=== PATIENT | female | born 1945 | race Hispanic/Latino ===

== ENCOUNTER → 2018-09-21 | Outpatient (CLI) | payer OTHER ==
[~2018-09-21] MED LIST: AMLO5TAB9 PO; BACL10TA PO; BRIM5DRO OP; ESOM40CA54 PO; FENO145T37 PO; GLIP1TAB6 PO; HYDR-4060 PO; LEVO500S PO; LISI2.5T2 PO; NAPR-1023 PO; NORT25CA3 PO; ONDA4TAB10 PO; PRAM1TAB3 PO; PRAV40TA3 PO; SITA100T12 PO; TAMS-1 PO; XALA2.5OS OD
== END | disposition home or self-care (01) ==
LOC: RAH 13:20
PROVIDERS: ATTEND Family Medicine
DX: Z12.31 Encounter for screening mammogram for malignant neoplasm of breast (principal)
CPT/HCPCS: 77067

== ENCOUNTER → 2020-06-28 | Outpatient (CLI) | payer OTHER ==
[~2020-06-28] MED LIST changes: +AMLO-257 PO; -AMLO5TAB9 PO; +FENO145T26 PO; -FENO145T37 PO
== END | disposition home or self-care (01) ==
LOC: SHCH 12:50
PROVIDERS: ATTEND Internal Medicine Cardiovascular Disease
DX: R07.9 Chest pain, unspecified (principal)
CPT/HCPCS: 93306

== ENCOUNTER → 2020-07-02 | Outpatient (CLI) | payer OTHER ==
[~2020-07-02] MED LIST changes: +REGADENOSON 0.4 MG/5 ML PF SYG IVP SCH
== END | disposition home or self-care (01) ==
LOC: SHCH 08:26
PROVIDERS: ATTEND Internal Medicine Cardiovascular Disease
DX: R07.9 Chest pain, unspecified (principal)
CPT/HCPCS: 78452; 93017; 96374; A9500 ×2; J2785

== ENCOUNTER → 2021-04-01 | Outpatient (CLI) | payer OTHER ==
[~2021-04-01] MED LIST changes: +LISI2.5T13 PO; -LISI2.5T2 PO; -REGADENOSON 0.4 MG/5 ML PF SYG IVP SCH
== END | disposition home or self-care (01) ==
LOC: SHCH 10:08
PROVIDERS: ATTEND Internal Medicine Cardiovascular Disease
DX: R60.9 Edema, unspecified (principal)
CPT/HCPCS: 93970

== ENCOUNTER → 2022-02-11 | Outpatient (CLI) | payer OTHER, MEDICARE ==
[2022-02-11 12:42] LABS: ALBUMIN 3.7 g/dL (3.5-5.0); BILIRUBIN,TOTAL 0.3 mg/dL (0.2-1.0); CREATININE 0.8 mg/dL (0.5-1.5); POTASSIUM 4.5 mmol/L (3.5-5.1); TOTAL PROTEIN, SERUM 8.2 g/dL (6.0-8.3)
== END | disposition home or self-care (01) ==
LOC: LAB 09:31
PROVIDERS: ATTEND Internal Medicine Cardiovascular Disease
DX: M94.0 Chondrocostal junction syndrome [Tietze] (principal); I10 Essential (primary) hypertension
CPT/HCPCS: 36415; 80053; 80061

== ENCOUNTER → 2023-02-08 | Outpatient (CLI) | payer OTHER, MEDICARE ==
[2023-02-08 12:32] LABS: ALBUMIN 3.5 g/dL (3.5-5.0); CREATININE 0.6 mg/dL (0.5-1.5); POTASSIUM 4.5 mmol/L (3.5-5.1); TOTAL PROTEIN, SERUM 7.3 g/dL (6.0-8.3)
== END | disposition home or self-care (01) ==
LOC: LAB 09:00
PROVIDERS: ATTEND Internal Medicine Cardiovascular Disease
DX: I25.10 Atherosclerotic heart disease of native coronary artery without angina pectoris (principal); E78.5 Hyperlipidemia, unspecified; E11.59 Type 2 diabetes mellitus with other circulatory complications
CPT/HCPCS: 36415; 80053; 80061

== ENCOUNTER 2023-02-16 15:25 | Emergency (ER) | payer OTHER, MEDICARE ==
[~2023-02-16] VITALS: Ht 157.5 cm; Wt 72.6 kg
[2023-02-16 20:49] VITALS: BP 145/69
[2023-02-16] MEDS ORDERED: KETOROLAC 15MG/ML VIAL (15MG/ML) IM ONE (21:00)
[2023-02-16] MEDS ORDERED: DICL100G31 TP (21:01)
== END 2023-02-16 21:26 | disposition home or self-care (01) ==
LOC: EDH 15:25
DX: S00.83XA Contusion of other part of head, initial encounter (principal); E11.9 Type 2 diabetes mellitus without complications; E78.00 Pure hypercholesterolemia, unspecified; I10 Essential (primary) hypertension; Z79.84 Long term (current) use of oral hypoglycemic drugs; Z79.899 Other long term (current) drug therapy; Z88.0 Allergy status to penicillin; Z95.5 Presence of coronary angioplasty implant and graft; W18.2XXA Fall in (into) shower or empty bathtub, initial encounter; Y93.89 Activity, other specified; Y92.89 Other specified places as the place of occurrence of the external cause; Y99.8 Other external cause status
CPT/HCPCS: 99285; 70450; 73030; 72125; 70486; 96372; J1885

== ENCOUNTER 2024-04-02 04:10 | Inpatient (IN) | payer OTHER, MEDICARE ==
[~2024-04-02] VITALS: Ht 157.5 cm; Wt 71.9 kg
[2024-04-02] VITALS (14 sets, daily range): BP systolic 96–129; BP diastolic 41–61; PULSE 55–81; RESP 16–28; O2SAT 95–100
[~2024-04-02 04:10] MED LIST changes: +AEC81 PO; +ALBU90AE3 IH; +ALEN35TA53 PO; -AMLO-257 PO; +APIX5TAB PO; -BACL10TA PO; +CALC-1038 PO; +CLOP-31 PO; +EMPA25TA PO; -ESOM40CA54 PO; +EZET10TA48 PO; -FENO145T26 PO; +FLUT1BLS12 IH; +FURO40TA5 PO; +GLIM2TAB30 PO; -GLIP1TAB6 PO; -HYDR-4060 PO; -LEVO500S PO; +LISI10TA24 PO; -LISI2.5T13 PO; +METO25TA3 PO; -NAPR-1023 PO; -NORT25CA3 PO; +OMEP40CA21 PO; -ONDA4TAB10 PO; -PRAM1TAB3 PO; -PRAV40TA3 PO; +ROPI5TAB24 PO; +ROSU20TA73 PO; +SEMA14TA2 PO; -SITA100T12 PO; +SUCR1TAB2 PO; -TAMS-1 PO
[2024-04-02] MEDS: LACTATED RINGERS 1000ML 1,000 ML IV ONE (04:47)
[2024-04-02] MEDS: METOPROLOL TARTRATE 1 MG/ML 5ML VIAL IV ONE (04:49)
[2024-04-02 05:18] LABS: BASOPHILS # (AUTO) 0.03 K/uL (0.00-0.20); BASOPHILS % (AUTO) 0.4 % (0.0-5.0); EOSINOPHILS # (AUTO) 0.03 K/uL (0.00-0.70); EOSINOPHILS % (AUTO) 0.4 % (0.0-8.0); HEMATOCRIT 41.6 % (36-48); IMMATURE GRANULOCYTE ABSOLUTE 0.04 K/uL (0-1); LYMPHOCYTES # (AUTO) 0.8 K/uL (1.0-4.8); LYMPHOCYTES % (AUTO) 11.1 % (21.0-51.0); MEAN CORPUSCULAR HEMOGLOBIN 30.7 pg (27.0-33.0); MEAN CORPUSCULAR HGB CONC 34.1 g/dL (32.0-36.0); MONOCYTES # (AUTO) 0.6 K/uL (0.1-1.0); MONOCYTES % (AUTO) 8.4 % (3.0-13.0); NEUTROPHILS # (AUTO) 5.5 K/uL (1.8-7.7); NEUTROPHILS % (AUTO) 79.1 % (40.0-77.0); PLATELET COUNT (AUTO) 208 K/uL (130-400); RED BLOOD CELL COUNT(AUTO) 4.62 MIL/uL (4.00-5.50); RED CELL DISTRIBUTION WIDTH 12.7 % (11.0-15.5); WHITE BLOOD COUNT (AUTO) 6.9 K/uL (4.8-10.8)
[2024-04-02] MEDS: dilTIAZem 25MG INJ IVP SCH (05:24)
[2024-04-02 05:44] LABS: B-TYPE NATRIURETIC PEPTIDE 25 pg/mL (0-100)
[2024-04-02 05:53] LABS: ALBUMIN 2.6 g/dL (3.5-5.0); BILIRUBIN,TOTAL 0.4 mg/dL (0.2-1.0); CREATININE 0.8 mg/dL (0.5-1.0); TOTAL PROTEIN, SERUM 6.6 g/dL (6.0-8.3)
[2024-04-02] MEDS ORDERED: dilTIAZem 125 MG/25 ML INJ 125 MG in 0.9%NACL 100ML 100 ML IV SCH (06:00)
[2024-04-02] MEDS ORDERED: LACTULOSE 20 GM/30 ML UDCUP PO PRN (07:00)
[2024-04-02] MEDS ORDERED: acetaMINOPHEN 650 MG SUPPOSITORY RC PRN (07:00)
[2024-04-02] MEDS ORDERED: ALBUTEROL 0.083% 2.5 MG/3 ML INH IH PRN (07:00)
[2024-04-02] MEDS ORDERED: TEMAZEPAM 15 MG CAPSULE PO PRN (07:00)
[2024-04-02] MEDS ORDERED: hydrALAZine 20MG/ML VIAL IV PRN (07:00)
[2024-04-02] MEDS: ASPIRIN 81MG CHEW TAB PO ONE (07:25)
[2024-04-02] MEDS: INSULIN humuLIN R 100 UNIT/ML 3ML SQ SCH (07:26)
[2024-04-02] MEDS: 0.9%NACL 1000ML 1,000 ML IV SCH (07:29)
[2024-04-02 07:33] LABS: ABG BASE EXCESS -7.1 mmol/L (-2.0-3.0); ABG HCO3 16.2 mmol/L (21.0-28.0); ABG OXYGEN SATURATION 94.1 % (94.0-98.0); ABG PCO2 28 mmHg (32-45); ABG PH 7.383 (7.350-7.450); PO2, ARTERIAL BG 69.8 mmHg (83.0-108.0); VENT MODE, BG RA (ROOM AIR)
[2024-04-02] MEDS: ONDANSETRON 4MG INJ IVP PRN (08:57)
[2024-04-02] MEDS: ENOXAPARIN SODIUM 40 MG/0.4 ML SYRINGE SQ SCH (09:56)
[2024-04-02] MEDS: metOPROLol sucCINATE 25 MG TAB.SR.24H PO SCH (09:56)
[2024-04-02] MEDS: FAMOTIDINE 20MG TAB PO SCH (09:56)
[2024-04-02] MEDS: ASPIRIN 81MG CHEW TAB PO SCH (09:56)
[2024-04-02] MEDS: IpraTROPium 0.5 MG/2.5 ML INH IH SCH (10:31)
[2024-04-02 13:56] LABS: APPEARANCE,URINE CLEAR (CLEAR); BILIRUBIN,URINE NEGATIVE (NEGATIVE); COLOR,URINE LIGHT-YELLOW (YELLOW); GLUCOSE, URINE (UA) >=1000 mg/dL (NEGATIVE); KETONES,URINE NEGATIVE (NEGATIVE); LEUKOCYTE ESTERASE ,URINE 75 Leu/uL (NEGATIVE); NITRATE,URINE NEGATIVE (NEGATIVE); OCCULT BLOOD,URINE NEGATIVE (NEGATIVE); OTHER CASTS, URINE 1 /LPF (None Seen); PH,URINE 5.5 (5.0-8.0); PROTEIN,URINE NEGATIVE (NEGATIVE); SQUAMOUS EPITHELIAL CELL,UR FEW /HPF (0-2); UROBILINOGEN,URINE 0.2 mg/dL (0.2-1.0)
[2024-04-02] MEDS: [UNRECOGNIZED DRUG - OTHER] IVPB SCH (14:31)
[2024-04-02] MEDS: METRONIDAZOLE 500MG/100ML BAG IV SCH (14:31)
[2024-04-02] MEDS: dilTIAZem 180MG SR CAP PO SCH (15:40)
[2024-04-02 18:47] LABS: SARS-CoV-2, RNA, NAAT NEGATIVE SARS CoV-2 (NEGATIVE)
[2024-04-02 18:55] LABS: INFLUENZA TYPE A Negative For Type A (NEGATIVE); INFLUENZA TYPE B Negative For Type B (NEGATIVE)
[2024-04-02] MEDS: APIXaban 5 MG TABLET PO SCH (20:23)
[2024-04-02] MEDS: ATORVASTATIN 40 MG TABLET PO SCH (20:23)
[2024-04-02] MEDS: acetaMINOPHEN 325 MG TAB PO PRN (20:37)
[2024-04-02] MEDS ORDERED: APIXaban 5 MG TABLET PO SCH (21:00)
[2024-04-03] VITALS (23 sets, daily range): BP systolic 80–115; BP diastolic 40–62; PULSE 57–117; RESP 16–20; O2SAT 95–97
[2024-04-03 04:56] LABS: BASOPHILS # (AUTO) 0.02 K/uL (0.00-0.20); BASOPHILS % (AUTO) 0.4 % (0.0-5.0); EOSINOPHILS # (AUTO) 0.07 K/uL (0.00-0.70); EOSINOPHILS % (AUTO) 1.4 % (0.0-8.0); HEMATOCRIT 37.2 % (36-48); IMMATURE GRANULOCYTE ABSOLUTE 0.02 K/uL (0-1); LYMPHOCYTES # (AUTO) 1.8 K/uL (1.0-4.8); LYMPHOCYTES % (AUTO) 34.6 % (21.0-51.0); MEAN CORPUSCULAR HEMOGLOBIN 30.2 pg (27.0-33.0); MEAN CORPUSCULAR HGB CONC 32.3 g/dL (32.0-36.0); MEAN CORPUSCULAR VOLUME 93.5 fL (79-99); MONOCYTES # (AUTO) 0.8 K/uL (0.1-1.0); MONOCYTES % (AUTO) 14.7 % (3.0-13.0); NEUTROPHILS # (AUTO) 2.5 K/uL (1.8-7.7); NEUTROPHILS % (AUTO) 48.5 % (40.0-77.0); PLATELET COUNT (AUTO) 156 K/uL (130-400); RED BLOOD CELL COUNT(AUTO) 3.98 MIL/uL (4.00-5.50); WHITE BLOOD COUNT (AUTO) 5.2 K/uL (4.8-10.8)
[2024-04-03 05:08] LABS: CREATININE 0.8 mg/dL (0.5-1.0); MAGNESIUM 1.8 mg/dL (1.80-2.40); PHOSPHORUS 2.2 mg/dL (2.5-4.9); POTASSIUM 3.8 mmol/L (3.5-5.1)
[2024-04-03] MEDS ORDERED: BRIMONIDINE TARTRATE OP SCH (09:00)
[2024-04-03] MEDS ORDERED: LATANOPROST 2.5 ML DROPS OD SCH (09:00)
[2024-04-03] MEDS ORDERED: TIMOLOL OP SCH (09:00)
[2024-04-03] MEDS ORDERED: LACE ASSESSMENT (SCORE > 11) MISC SCH (09:30)
[2024-04-03] MEDS: SALMETEROL IH SCH (11:44)
[2024-04-03] MEDS: FLUTICASONE PROPION IH SCH (11:44)
[2024-04-03] MEDS: CLOPIDOGREL 75MG TAB PO SCH (11:45)
[2024-04-03] MEDS: doCUSate SODIUM 100 MG CAP PO PRN (17:59)
[2024-04-03] MEDS ORDERED: POTASSIUM CHLORIDE 10% ELIXIR 20 MEQ/15 ML UDCUP PO PRN (19:30)
[2024-04-03] MEDS: MAGNESIUM 2GM PREMIX 50ML 50 ML IV PRN (19:30)
[2024-04-03] MEDS ORDERED: POTASSIUM CHLORIDE 20MEQ/100ML 100 ML IV PRN (19:30)
[2024-04-03] MEDS: KCL 20 MEQ ERTAB PO PRN (19:31)
[2024-04-03] MEDS: BRIMONIDINE TARTRATE OP SCH (21:00)
[2024-04-03] MEDS: TIMOLOL OP SCH (21:00)
[2024-04-03] MEDS: DRONEDARONE HYDROCHLORIDE 400 MG TABLET PO SCH (21:21)
[2024-04-03] MEDS: LATANOPROST OD SCH (21:27)
[2024-04-04] VITALS (12 sets, daily range): BP systolic 94–108; BP diastolic 45–52; PULSE 51–94; RESP 16–24; O2SAT 96–97
[2024-04-04 03:55] LABS: BASOPHILS # (AUTO) 0.02 K/uL (0.00-0.20); BASOPHILS % (AUTO) 0.2 % (0.0-5.0); EOSINOPHILS # (AUTO) 0.09 K/uL (0.00-0.70); EOSINOPHILS % (AUTO) 1.1 % (0.0-8.0); HEMATOCRIT 32.8 % (36-48); IMMATURE GRANULOCYTE ABSOLUTE 0.02 K/uL (0-1); LYMPHOCYTES # (AUTO) 2.3 K/uL (1.0-4.8); LYMPHOCYTES % (AUTO) 28.9 % (21.0-51.0); MEAN CORPUSCULAR HEMOGLOBIN 30.4 pg (27.0-33.0); MEAN CORPUSCULAR HGB CONC 33.2 g/dL (32.0-36.0); MEAN CORPUSCULAR VOLUME 91.6 fL (79-99); MONOCYTES # (AUTO) 1.3 K/uL (0.1-1.0); MONOCYTES % (AUTO) 16.1 % (3.0-13.0); NEUTROPHILS # (AUTO) 4.3 K/uL (1.8-7.7); NEUTROPHILS % (AUTO) 53.5 % (40.0-77.0); PLATELET COUNT (AUTO) 156 K/uL (130-400); RED BLOOD CELL COUNT(AUTO) 3.58 MIL/uL (4.00-5.50)
[2024-04-04] MEDS: guaiFENesin-coDEINE-DM 200/20 MG 10 ML PO PRN (04:01)
[2024-04-04 04:27] LABS: ALBUMIN 2.2 g/dL (3.5-5.0); BILIRUBIN,TOTAL 0.3 mg/dL (0.2-1.0); CREATININE 0.7 mg/dL (0.5-1.0); MAGNESIUM 1.9 mg/dL (1.80-2.40); POTASSIUM 4.1 mmol/L (3.5-5.1); TOTAL PROTEIN, SERUM 5.7 g/dL (6.0-8.3)
[2024-04-04 05:10] LABS: B-TYPE NATRIURETIC PEPTIDE 139 pg/mL (0-100)
[2024-04-04] MEDS: IpraTROPium 0.5 MG/2.5 ML INH IH SCH (12:00)
[2024-04-04] MEDS ORDERED: DRON400T7 PO (17:21)
[2024-04-05] VITALS (8 sets, daily range): BP systolic 90–105; BP diastolic 53–64; PULSE 75–100; RESP 16–22; O2SAT 94–97
[2024-04-05 04:19] LABS: ALBUMIN 2.3 g/dL (3.5-5.0); BILIRUBIN,DIRECT 0.1 mg/dL (0.0-0.3); BILIRUBIN,TOTAL 0.3 mg/dL (0.2-1.0); CREATININE 0.6 mg/dL (0.5-1.0); MAGNESIUM 1.9 mg/dL (1.80-2.40); POTASSIUM 3.9 mmol/L (3.5-5.1); TOTAL PROTEIN, SERUM 5.8 g/dL (6.0-8.3)
== END 2024-04-05 13:30 | disposition home or self-care (01) | DRG 872 ==
LOC: EDH 04:10 → EDHIP 06:43 → OBSVTOIN 06:43 → 2AH 07:45
PROVIDERS: ADMIT Internal Medicine Critical Care Medicine; ATTEND Internal Medicine Critical Care Medicine
DX: A41.9 Sepsis, unspecified organism (principal); N30.00 Acute cystitis without hematuria; I50.32 Chronic diastolic (congestive) heart failure; K80.10 Calculus of gallbladder with chronic cholecystitis without obstruction; D68.59 Other primary thrombophilia; I48.92 Unspecified atrial flutter; E87.20 Acidosis, unspecified; I25.119 Atherosclerotic heart disease of native coronary artery with unspecified angina pectoris; I11.0 Hypertensive heart disease with heart failure; I27.20 Pulmonary hypertension, unspecified; J44.89 Other specified chronic obstructive pulmonary disease; E86.0 Dehydration; I48.0 Paroxysmal atrial fibrillation; E11.51 Type 2 diabetes mellitus with diabetic peripheral angiopathy without gangrene; E66.9 Obesity, unspecified; Z20.822 Contact with and (suspected) exposure to COVID-19; E11.65 Type 2 diabetes mellitus with hyperglycemia; E78.00 Pure hypercholesterolemia, unspecified; Z79.82 Long term (current) use of aspirin; I25.2 Old myocardial infarction; Z79.84 Long term (current) use of oral hypoglycemic drugs; Z95.5 Presence of coronary angioplasty implant and graft; Z88.0 Allergy status to penicillin; Z79.01 Long term (current) use of anticoagulants; Z90.710 Acquired absence of both cervix and uterus; Z68.29 Body mass index [BMI] 29.0-29.9, adult
CPT/HCPCS: 36415; 36600; 71045; 71250; 74176; 76705; 80048; 80053; 80076; 81001; 82550; 82803; 82948; 83605; 83690; 83735; 83880; 84100; 84145; 84484; 85025; 87040; 87086; 87635; 87804; 93005; 93306; 94640; 94664; G0378; J0713; J1650; J1815; J2405; J3475; J3490

== ENCOUNTER → 2024-05-04 | Outpatient (CLI) | payer OTHER, MEDICARE ==
[~2024-05-04] MED LIST changes: -AEC81 PO; -ALBU90AE3 IH; -CALC-1038 PO; +DRON400T7 PO; -FURO40TA5 PO; -LISI10TA24 PO; -METO25TA3 PO; -SEMA14TA2 PO; -SUCR1TAB2 PO
[2024-05-04 12:31] LABS: ALBUMIN 3.6 g/dL (3.5-5.0); BILIRUBIN,TOTAL 0.4 mg/dL (0.2-1.0); POTASSIUM 5.3 mmol/L (3.5-5.1); TOTAL PROTEIN, SERUM 8.1 g/dL (6.0-8.3)
== END | disposition home or self-care (01) ==
LOC: LAB 09:19
PROVIDERS: ATTEND Internal Medicine Cardiovascular Disease
DX: E78.00 Pure hypercholesterolemia, unspecified (principal); I50.22 Chronic systolic (congestive) heart failure
CPT/HCPCS: 36415; 80053; 80061; 83880

== ENCOUNTER → 2024-05-17 | Outpatient (CLI) | payer OTHER, MEDICARE ==
[~2024-05-17] MED LIST changes: -ROSU20TA73 PO; +ROSU20TA98 PO
[2024-05-17 12:19] LABS: CREATININE 0.9 mg/dL (0.5-1.0); POTASSIUM 4.7 mmol/L (3.5-5.1)
== END | disposition home or self-care (01) ==
LOC: LAB 09:24
PROVIDERS: ATTEND Internal Medicine Cardiovascular Disease
DX: I87.2 Venous insufficiency (chronic) (peripheral) (principal); R60.9 Edema, unspecified
CPT/HCPCS: 36415; 80048; 83880

== ENCOUNTER → 2024-06-01 | Outpatient (CLI) | payer OTHER, MEDICARE ==
[2024-06-01 12:28] LABS: BASOPHILS # (AUTO) 0.05 K/uL (0.00-0.20); BASOPHILS % (AUTO) 0.4 % (0.0-5.0); EOSINOPHILS # (AUTO) 0.16 K/uL (0.00-0.70); EOSINOPHILS % (AUTO) 1.4 % (0.0-8.0); HEMATOCRIT 38.6 % (36-48); IMMATURE GRANULOCYTE ABSOLUTE 0.06 K/uL (0-1); LYMPHOCYTES # (AUTO) 3.2 K/uL (1.0-4.8); LYMPHOCYTES % (AUTO) 26.9 % (21.0-51.0); MEAN CORPUSCULAR HEMOGLOBIN 28.8 pg (27.0-33.0); MEAN CORPUSCULAR HGB CONC 30.8 g/dL (32.0-36.0); MEAN CORPUSCULAR VOLUME 93.5 fL (79-99); MONOCYTES # (AUTO) 1.2 K/uL (0.1-1.0); MONOCYTES % (AUTO) 10.5 % (3.0-13.0); NEUTROPHILS # (AUTO) 7.1 K/uL (1.8-7.7); NEUTROPHILS % (AUTO) 60.3 % (40.0-77.0); PLATELET COUNT (AUTO) 193 K/uL (130-400); RED BLOOD CELL COUNT(AUTO) 4.13 MIL/uL (4.00-5.50); RED CELL DISTRIBUTION WIDTH 13.8 % (11.0-15.5); WHITE BLOOD COUNT (AUTO) 11.7 K/uL (4.8-10.8)
[2024-06-01 12:32] LABS: CREATININE 0.9 mg/dL (0.5-1.0); POTASSIUM 4.9 mmol/L (3.5-5.1)
[2024-06-01 12:49] LABS: INR 1.11 (0.85-1.15); PROTHROMBIN TIME 11.9 SEC (9.6-11.6)
[2024-06-01 12:50] LABS: PARTIAL THROMBOPLASTIN TIME 31.9 SEC (26.3-35.5)
== END | disposition home or self-care (01) ==
LOC: LAB 08:54
PROVIDERS: ATTEND Internal Medicine Cardiovascular Disease
DX: I87.1 Compression of vein (principal); I87.2 Venous insufficiency (chronic) (peripheral); Z79.01 Long term (current) use of anticoagulants
CPT/HCPCS: 36415; 80048; 85025; 85610; 85730

== ENCOUNTER → 2024-07-12 | Outpatient (CLI) | payer OTHER, MEDICARE ==
[~2024-07-12] MED LIST changes: +ALBU18HF7 IH; +BENZ-39 PO; +CHOL100046 PO; +FURO40TA5 PO; +INSU100I13 SQ; +LISI10TA24 PO; +LORA10TA7 PO; +PRED20TA3 PO; +TIZA2CAP9 PO
[2024-07-12 12:31] LABS: BASOPHILS # (AUTO) 0.04 K/uL (0.00-0.20); BASOPHILS % (AUTO) 0.5 % (0.0-5.0); EOSINOPHILS # (AUTO) 0.07 K/uL (0.00-0.70); EOSINOPHILS % (AUTO) 0.9 % (0.0-8.0); HEMATOCRIT 40.2 % (36-48); IMMATURE GRANULOCYTE ABSOLUTE 0.02 K/uL (0-1); LYMPHOCYTES # (AUTO) 2.6 K/uL (1.0-4.8); LYMPHOCYTES % (AUTO) 34.5 % (21.0-51.0); MEAN CORPUSCULAR HEMOGLOBIN 28.3 pg (27.0-33.0); MEAN CORPUSCULAR HGB CONC 31.3 g/dL (32.0-36.0); MEAN CORPUSCULAR VOLUME 90.1 fL (79-99); MONOCYTES # (AUTO) 0.8 K/uL (0.1-1.0); MONOCYTES % (AUTO) 11.3 % (3.0-13.0); NEUTROPHILS # (AUTO) 3.9 K/uL (1.8-7.7); NEUTROPHILS % (AUTO) 52.5 % (40.0-77.0); PLATELET COUNT (AUTO) 217 K/uL (130-400); RED BLOOD CELL COUNT(AUTO) 4.46 MIL/uL (4.00-5.50); RED CELL DISTRIBUTION WIDTH 14.4 % (11.0-15.5); WHITE BLOOD COUNT (AUTO) 7.4 K/uL (4.8-10.8)
[2024-07-12 12:35] LABS: INR 1.63 (0.85-1.15)
[2024-07-12 12:58] LABS: ALBUMIN 3.5 g/dL (3.5-5.0); BILIRUBIN,TOTAL 0.1 mg/dL (0.2-1.0); CREATININE 0.9 mg/dL (0.5-1.0); POTASSIUM 4.2 mmol/L (3.5-5.1); TOTAL PROTEIN, SERUM 7.3 g/dL (6.0-8.3)
== END | disposition home or self-care (01) ==
LOC: LAB 09:38
PROVIDERS: ATTEND Internal Medicine Cardiovascular Disease
DX: I48.0 Paroxysmal atrial fibrillation (principal); I49.5 Sick sinus syndrome; R06.00 Dyspnea, unspecified; I87.1 Compression of vein
CPT/HCPCS: 36415; 80053; 85025; 85610; 85730

== ENCOUNTER → 2024-08-23 | Outpatient (CLI) | payer OTHER, MEDICARE ==
[2024-08-23 12:18] LABS: BASOPHILS # (AUTO) 0.04 K/uL (0.00-0.20); BASOPHILS % (AUTO) 0.4 % (0.0-5.0); EOSINOPHILS # (AUTO) 0.22 K/uL (0.00-0.70); EOSINOPHILS % (AUTO) 2.2 % (0.0-8.0); HEMATOCRIT 42.8 % (36-48); IMMATURE GRANULOCYTE ABSOLUTE 0.03 K/uL (0-1); LYMPHOCYTES # (AUTO) 3.2 K/uL (1.0-4.8); LYMPHOCYTES % (AUTO) 31.7 % (21.0-51.0); MEAN CORPUSCULAR HEMOGLOBIN 27.8 pg (27.0-33.0); MEAN CORPUSCULAR HGB CONC 30.8 g/dL (32.0-36.0); MEAN CORPUSCULAR VOLUME 90.1 fL (79-99); MONOCYTES # (AUTO) 1.2 K/uL (0.1-1.0); MONOCYTES % (AUTO) 11.5 % (3.0-13.0); NEUTROPHILS # (AUTO) 5.5 K/uL (1.8-7.7); NEUTROPHILS % (AUTO) 53.9 % (40.0-77.0); PLATELET COUNT (AUTO) 233 K/uL (130-400); RED BLOOD CELL COUNT(AUTO) 4.75 MIL/uL (4.00-5.50); RED CELL DISTRIBUTION WIDTH 15.1 % (11.0-15.5); WHITE BLOOD COUNT (AUTO) 10.1 K/uL (4.8-10.8)
[2024-08-23 12:24] LABS: INR 1.01 (0.85-1.15); PROTHROMBIN TIME 11.3 SEC (9.6-11.6)
[2024-08-23 12:25] LABS: PARTIAL THROMBOPLASTIN TIME 24.9 SEC (26.3-35.5)
[2024-08-23 12:49] LABS: ALBUMIN 3.6 g/dL (3.5-5.0); BILIRUBIN,TOTAL 0.3 mg/dL (0.2-1.0); CREATININE 0.7 mg/dL (0.5-1.0); POTASSIUM 4.5 mmol/L (3.5-5.1); TOTAL PROTEIN, SERUM 7.6 g/dL (6.0-8.3)
== END | disposition home or self-care (01) ==
LOC: LAB 08:53
PROVIDERS: ATTEND Internal Medicine Cardiovascular Disease
DX: I87.2 Venous insufficiency (chronic) (peripheral) (principal); I87.1 Compression of vein; I48.0 Paroxysmal atrial fibrillation; I50.22 Chronic systolic (congestive) heart failure
CPT/HCPCS: 36415; 80053; 85025; 85610; 85730

== ENCOUNTER 2024-09-18 17:54 | Observation (INO) | payer OTHER, MEDICARE ==
[~2024-09-18] VITALS: Ht 157.5 cm; Wt 70.3 kg
--- NOTE | 2024-09-18 18:47 | EKG ---
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
--- NOTE | 2024-09-18 18:56 | ERN ---
General Chief Complaint: Chest Pain Stated Complaint: CHEST PAIN Time Seen by MD: 19:06 Source: patient History of Present Illness Initial Comments PATIENT IS A 79-YEAR-OLD FEMALE COMING IN TO BE EVALUATED FOR CHEST PRESSURE. PATIENT STATES THAT THE SYMPTOMS BEGAN YESTERDAY HAS BEEN ONGOING. PATIENT ALSO STATES THAT THE PAIN IS MORE PRESSURE-LIKE. DOES NOT HAS A HISTORY OF CARDIAC ISSUES. Allergies: Coded Allergies: Penicillins (Verified Allergy, Severe, HIVES, 03/28/16) Home Meds Active Scripts Prednisone (Prednisone) 20 Mg Tablet, 40 MG PO DAILY for 5 Days, #5 TAB Prov:SHERYL SCHAEFFER [facility] 06/09/24 Benzonatate (Tessalon Perles) 100 Mg Cap, 1 CAP PO TID PRN for cough for 10 Days, #30 CAP 0 Refills Prov:SHERYL SCHAEFFER [employer] 06/09/24 Dronedarone Hydrochloride (Multaq) 400 Mg Tablet, 400 MG PO BID, #60 TAB 1 Refill Prov:JALEN VINSON 04/04/24 Apixaban (Eliquis) 5 Mg Tablet, 5 MG PO BID, #60 TAB 1 Refill Prov:BRIANNE PETERSON 03/24/24 Clopidogrel Bisulfate (Plavix) 75 Mg Tablet, 75 MG PO DAILY, #30 TAB 1 Refill Prov:BRIANNE PETERSON 03/23/24 Reported Medications Albuterol Sulfate (Ventolin Hfa) 90 Mcg Hfa.aer.ad, 2 PUFF IH BID PRN for wheezing for 30 Days, #18 GM 0 Refills 06/05/24 Insulin NPL/Insulin Lispro (Humalog Mix 75-25 Kwikpen) 100 Unit/Ml (75-25) Insuln.pen, 0 SQ BID, SYRINGE 06/05/24 Cholecalciferol (Vitamin D3) (Vitamin D3) 25 Mcg (1000 Unit) Capsule, 25 MCG PO DAILY, CAP 06/05/24 Lisinopril (Lisinopril) 10 Mg Tablet, 1 TAB PO DAILY for 30 Days, #30 TAB 0 Refills 06/05/24 Furosemide (Furosemide) 40 Mg Tablet, 1 TAB PO DAILY for 30 Days, #30 TAB 0 Refills 06/05/24 Ropinirole HCl (Ropinirole HCl) 5 Mg Tablet, 5 MG PO TID, TAB 06/05/24 Tizanidine HCl (Tizanidine HCl) 2 Mg Capsule, 2 MG PO TIDP, CAP 06/05/24 Loratadine (Loratadine) 10 Mg Tablet, 1 TAB PO DAILY for allergy symptoms for 30 Days, #30 TAB 0 Refills 06/05/24 Fluticasone Propion/Salmeterol (Fluticasone-Salmeterol 250-50) 250 Mcg-50 Mcg/Dose Blst.w.dev, 1 EACH IH DAILY 03/20/24 Alendronate Sodium (Alendronate Sodium) 35 Mg Tablet, 35 MG PO QWEEK, TAB 03/20/24 Glimepiride (Glimepiride) 2 Mg Tablet, 2 MG PO DAILYBKFST, TAB 03/20/24 Omeprazole (Omeprazole) 40 Mg Capsule.dr, 40 MG PO ACBKFST, CAP 03/20/24 Rosuvastatin Calcium (Rosuvastatin Calcium) 20 Mg Tablet, 20 MG PO HS, TAB 03/20/24 Empagliflozin (Jardiance) 25 Mg Tablet, 25 MG PO DAILY, TAB 03/20/24 Ezetimibe (Ezetimibe) 10 Mg Tablet, 10 MG PO DAILY, TAB 03/20/24 Brimonidine Tartrate/Timolol (Combigan Eye Drops) 5 Ml Drops, 5 ML OP DAILY, DROP 03/28/16 Latanoprost (Xalatan 0.005% Ophth Soln) 20 Drop/Ml Opsol, 20 DROP OD DAILY, DROP 03/28/16 Past Medical History Past Medical History: Asthma, Diabetes-Type II, Hypertension Past Surgical History: Other Surgical History Other: STENTS X 2 Family History Family History: Negative Social History Social History: Negative Female( History) History: Not Applicable ROS Dictation CONSTITUTIONAL: NO CHILLS, NO FEVER, NO WEAKNESS, NO DIAPHORESIS, NO MALAISE. HEAD/FACE: NO SIGNS OF TRAUMA. EENT: NO EYE PAIN, NO BLURRED VISION, NO TEARING, NO DOUBLE VISION, NO EAR PAIN, NO EAR DISCHARGE, NO NOSE PAIN, NO NASAL CONGESTION, NO THROAT PAIN, NO THROAT SWELLING, NO MOUTH PAIN. RESPIRATORY: NO COUGH, NO ORTHOPNEA, NO SOB, NO STRIDOR, NO WHEEZING. CARDIOVASCULAR: CHEST PAIN, NO EDEMA, NO PALPITATIONS, NO SYNCOPE. GASTROINTESTINAL/ABDOMINAL: NO ABDOMINAL PAIN, NO CONSTIPATION, NO DIARRHEA, NO NAUSEA, NO VOMITING. GENITOURINARY: NO ABNORMAL DISCHARGE, NO DYSURIA, NO FREQUENT URINATION, NO HEMATURIA. NO COMPLAINTS OF PAIN IN THE GENITALS. MUSCULOSKELETAL: NO BACK PAIN, NO GOUT, NO JOINT PAIN, NO JOINT SWELLING, NO MUSCLE PAIN, NO MUSCLE STIFFNESS, NO NECK PAIN. INTEGUMENTARY: NO CHANGE IN COLOR, NO CHANGE IN HAIR/NAILS, NO DRYNESS, NO LESION, NO LUMPS, NO RASH. NEUROLOGICAL/PSYCH: NO ANXIETY, NOT DEPRESSED, NO EMOTIONAL PROBLEM, NO HE ADACHE, NO NUMBNESS, NO PRE-EXISTING DEFICIT, NO HISTORY OF SEIZURES, NO TREMORS, NO WEAKNESS. HEMATOLOGIC/LYMPHATIC: NOT ANEMIC, NO HISTORY OF BLOOD CLOTS, NO APPARENT BLEEDING, NO BRUISING, GLANDS NOT SWOLLEN. ALL SYSTEMS NEGATIVE, EXCEPT NOTED. Physical Exam Physical Exam Dictation VITAL SIGNS: REVIEWED. GENERAL APPEARANCE: ALERT, ORIENTED X3, NO ACUTE DISTRESS, OBESE. HEAD AND FACE: NON-TRAUMATIC. EYES: PERRL, PINK CONJUNCTIVAS, EYELID NO TRAUMA, ANTERIOR CHAMBER CLEAR. EARS: PINNAS INTACT AND NO SIGNS OF TRAUMA OR ERYTHEMA. EAR CANALS CLEAR AND NO DISCHARGE. TMS NO ERYTHEMA. NOSE: NO DISCHARGE, NO BLEEDING. OROPHARYNX: MOUTH NORMAL, TEETH NO CARIES, TONGUE PINK. PHARYNX CLEAR, NO ERYTHEMA. TONSILS NO EXUDATES, NO ABSCESSES NOTED. MUCOUS MEMBRANE MOIST. NECK: SUPPLE, NON-TENDER, NO THYROMEGALY, NO MASSES, NO JVD, NO BRUITS. BREAST: DEFERRED. CHEST: NO TENDERNESS, NO CREPITUS, NO PARADOXICAL MOVEMENT, NO RETRACTIONS. LUNGS: CLEAR, WELL-VENTILATED, SYMMETRIC, NO RALES, NO WHEEZING, NO RHONCHI, NO STRIDOR, GOOD BREATH SOUNDS BILATERALLY. HEART: REGULAR RATE, REGULAR RHYTHM, NO MURMUR, NO GALLOPS. VASCULAR: NO PERIPHERAL EDEMA. ABDOMEN: SOFT, POSITIVE BOWEL SOUNDS, NONDISTENDED, NO GUARDING, NONTENDER, NO REBOUND, NO MASSES NO HEPATOMEGALY, NO SPLENOMEGALY, NO RAMIREZ'S SIGN, NO HERNIAS. RECTAL: DEFERRED. GENITAL: DEFERRED. NEUROLOGICAL: NORMAL SPEECH, GROSS MOTOR FUNCTION INTACT, GROSS SENSORY FUNCTION INTACT. MUSCULOSKELETAL: NECK NONTENDER, FULL RANGE OF MOTION, BACK NONTENDER, FULL RANGE OF MOTION. EXTREMITIES: NONTENDER, FULL RANGE OF MOTION. SKIN: COLOR PINK, DRY, NO TURGOR, NO RASH, NO LACERATIONS, NO ABRASIONS, NO CONTUSIONS. LYMPHATICS: DEFERRED. Results Laboratory and Microbiology Lab and Micro Result Laboratory Tests Test 09/18/24 18:52 09/18/24 19:31 White Blood Count 10.0 K/uL (4.8-10.8) Red Blood Count 4.54 MIL/uL (4.00-5.50) Hemoglobin 12.9 g/dL (12.0-16.0) Hematocrit 39.8 % (36-48) Mean Corpuscular Volume 87.7 fL (79-99) Mean Corpuscular Hemoglobin 28.4 pg (27.0-33.0) Mean Corpuscular Hemoglobin Concent 32.4 g/dL (32.0-36.0) Red Cell Distribution Width 14.4 % (11.0-15.5) Platelet Count 223 K/uL (130-400) Mean Platelet Volume 10.4 fL (7.5-10.5) Immature Granulocyte % (Auto) 0.3 % (0-1) Neutrophils (%) (Auto) 45.8 % (40.0-77.0) Lymphocytes (%) (Auto) 42.2 % (21.0-51.0) Monocytes (%) (Auto) 9.3 % (3.0-13.0) Eosinophils (%) (Auto) 2.0 % (0.0-8.0) Basophils (%) (Auto) 0.4 % (0.0-5.0) Neutrophils # (Auto) 4.6 K/uL (1.8-7.7) Lymphocytes # (Auto) 4.2 K/uL (1.0-4.8) Monocytes # (Auto) 0.9 K/uL (0.1-1.0) Eosinophils # (Auto) 0.20 K/uL (0.00-0.70) Basophils # (Auto) 0.04 K/uL (0.00-0.20) Absolute Immature Granulocyte (auto 0.03 K/uL (0-1) Nucleated Red Blood Cells 0.0 % (0.0-0.19) Prothrombin Time 11.3 SEC (9.6-11.6) Prothromb Time International Ratio 1.01 (0.85-1.15) Activated Partial Thromboplast Time 26.5 SEC (26.3-35.5) Sodium Level 141 mmol/L (136-145) Potassium Level 3.9 mmol/L (3.5-5.1) Chloride Level 101 mmol/L (101-111) Carbon Dioxide Level 33 mmol/L (21-32) H Blood Urea Nitrogen 16 mg/dL (7-18) Creatinine 0.8 mg/dL (0.5-1.0) Glomerular Filtration Rate Calc 75 mL/min (>90) Random Glucose 217 mg/dL (70-105) H Total Calcium 8.9 mg/dL (8.5-10.1) Magnesium Level 1.80 mg/dL (1.80-2.40) Total Creatine Kinase 443 U/L (21-232) #*H Troponin I High Sensitivity 6 ng/L (4-50) B-Type Natriuretic Peptide 19 pg/mL (0-100) Urine Color COLORLESS (YELLOW) Urine Appearance CLEAR (CLEAR) Urine pH 6.0 (5.0-8.0) Urine Specific [place] 1.006 (1.001-1.031) Urine Protein NEGATIVE mg/dL (NEGATIVE) Urine Glucose (UA) 500 mg/dL (NEGATIVE) H Urine Ketones NEGATIVE mg/dL (NEGATIVE) Urine Occult Blood NEGATIVE (NEGATIVE) Urine Nitrate NEGATIVE (NEGATIVE) Urine Bilirubin NEGATIVE mg/dL (NEGATIVE) Urine Urobilinogen 0.2 mg/dL (0.2-1.0) Urine Leukocyte Esterase NEGATIVE Nhi/uL Urine RBC 0-1 /HPF (0-1) Urine WBC 0-1 /HPF (0-1) Urine Squamous Epithelial Cells RARE /HPF (0-2) Urine Bacteria None /HPF (None Seen) MDM MDM: DIFFERENTIAL DIAGNOSIS: RATIONALE: TESTS CONSIDERED AND ORDERED SECONDARY TO SHARED DECISION MAKING INCLUDE: PREVIOUS OUTSIDE RECORDS REVIEWED: OLD ER VISITS. RISK OF COMPLICATION AND/OR MORBIDITY OR MORTALITY OF PATIENT MANAGEMENT: NONE MEDICATIONS-PER MEDICATION RECONCILIATION NEED FOR HOSPITALIZATION: PATIENT DOES NOT MEET CRITERIA FOR HOSPITALIZATION. NEED FOR EMERGENCY MAJOR/MINOR SURGERY: NO THERE ARE NO SOCIAL CONCERNS WITH THIS PATIENT. PRESCRIPTION DRUG MANAGEMENT PRESCRIPTIONS WILL INCLUDE SYMPTOMATIC CARE PATIENT'S PRIOR EXTERNAL MEDICAL RECORDS FROM OTHER ER VISITS WERE REVIEWED BY ME INDICATED. PRIOR TESTING AND RESULTS FROM PREVIOUS VISITS WERE REVIEWED. PRIOR TESTS WERE TAKEN INTO ACCOUNT WITH MEDICAL DECISION MAKING AND RESOURCE UTILIZATION, INDEPENDENT HISTORIAN/HISTORIANS WERE USED TO OBTAIN COMPLETE MEDICAL HISTORY. I INDEPENDENTLY INTERPRETED THE TEST THAT WERE PERFORMED, RESULTS WERE REVIEWED BY ME AND CONSIDERED FINDINGS ON RADIOLOGY IF ORDERED. MEDICAL MANAGEMENT AND EXAMINATION INTERPRETATION DISCUSSIONS WERE HAD BY ME WITH OTHER QUALIFIED HEALTHCARE PROFESSIONALS INDICATED FOR THE PATIENT'S CARE. ED Course Orders Procedure Category Date Status Time Cbc With Differential LAB 09/18/24 Complete 18:17 Prothrombin Time With LAB 09/18/24 Complete INR 18:17 B-Type Natriuretic LAB 09/18/24 Complete Peptide 18:17 Chest 1vw RAD 09/18/24 Resulted 18:17 12 Lead Ekg Tracing- EKG 09/18/24 Complete Technical 18:17 Magnesium LAB 09/18/24 Complete 18:17 Creatine Kinase, Total LAB 09/18/24 Complete 18:17 Troponin I High LAB 09/18/24 Complete Sensitivity 18:17 Urinalysis Profile LAB 09/18/24 Complete 18:17 Partial LAB 09/18/24 Complete Thromboplastin Time 18:17 Basic Metabolic Panel LAB 09/18/24 Complete 18:17 Pantoprazole 40mg Inj PHA 09/18/24 Complete (Protonix 40mg Inj 18:30 Current Medications Medications (Trade) Dose Ordered Sig/Jennifer Route PRN Reason Start Time Stop Time Status Last Admin Dose Admin Pantoprazole Sodium (PROTonix 40MG INJ) 40 mg ONCE ONCE IVP 09/18/24 18:30 09/18/24 18:31 DC 09/18/24 20:13 Vital Signs Date Time Temp Pulse Resp B/P (MAP) Pulse Ox O2 Delivery O2 Flow Rate FiO2 09/18/24 19:34 98.4 72 17 103/39 99 Room Air* 0 21 09/18/24 18:41 97.7 80 20 98 Room Air 0 7:00 p.m. patient was signed out to me by a.m. physician. This is a 79-year-old female with known history of coronary artery disease severe peripheral arterial disease status post stents was having chest pains all day today she was supposed to get a stress test done at the office of Dr. Shine. Apparently he was not there and her test was postponed to Wednesday she was also told that she had pauses in sleep and she may need a pacemaker placement. Patient stated that she was having chest pains and could not wait until Wednesday and came in for evaluation Blood pressure 103/39 pulse oximetry was 99% on room air She does have a component of reproducibility with chest soreness on my independent evaluation. Labs reviewed CBC with a normal limits BNP 7 showed a bicarbonate of 33 BUN and creatinine are 16 and 0.8 with a glucose of 217 her total CK was 443 urinalysis was unremarkable. Chest x-ray showed bilateral chronic interstitial markings. I had a long discussion with the patient and updated her on the test results and she was very anxious and stated that she is having ongoing chest pains and is concerned . With all the multiple risk factors and known coronary artery disease and possibly a conduction disease with history of atrial fibrillation, I recommended that she be admitted to the hospital for further evaluation including a stress test as needed and evaluation also for a pacemaker. She is agreeable Patient was accepted by [facility] mid-level provider for hospitalist group for admission and further management HEART Score Response (Comments) Value History: Moderate suspicion (+1) 1 EKG: Repolarization changes 1 Age: > 65yrs (+2) 2 Risk Factors: 3+ risk factors (+2) 2 Initial Troponin: Normal limit (0) 0 HEART Score Risk: Mod Risk for MACE (4-6) Total 6 DX & DISP Disposition: Inpatient Decision to Admit Time: 21:22 Departure Impression: Primary Impression: Unstable angina Additional Impressions: CAD (coronary artery disease), Atrial fibrillation Condition: Stable Additional Instructions: Patient was informed of all the diagnostic labs and procedures conducted in the emergency room today and demonstrated understanding of the results. I personally reviewed and interpreted all the diagnostic exams performed in the ER today. The patient will be admitted to the hospital for further treatment and evaluation. Disposition-admit to facility Condition-stable/guarded Course-uncertain at this time Pain status-decreased Assessment-exam unchanged Admission Certification- I certify that the patients status is appropriate and is based on my best clinical judgment and the patient's condition as documented in the medical records Referrals: NOE STEVENSON M.D. (PCP) KORI SANTAMARIA MD Sep 18, 2024 18:56 CONCETTA CASTRO MD Sep 18, 2024 21:32
[2024-09-18 19:06] LABS: BASOPHILS # (AUTO) 0.04 K/uL (0.00-0.20); BASOPHILS % (AUTO) 0.4 % (0.0-5.0); HEMATOCRIT 39.8 % (36-48); IMMATURE GRANULOCYTE ABSOLUTE 0.03 K/uL (0-1); LYMPHOCYTES # (AUTO) 4.2 K/uL (1.0-4.8); LYMPHOCYTES % (AUTO) 42.2 % (21.0-51.0); MEAN CORPUSCULAR HEMOGLOBIN 28.4 pg (27.0-33.0); MEAN CORPUSCULAR HGB CONC 32.4 g/dL (32.0-36.0); MEAN CORPUSCULAR VOLUME 87.7 fL (79-99); MONOCYTES # (AUTO) 0.9 K/uL (0.1-1.0); MONOCYTES % (AUTO) 9.3 % (3.0-13.0); NEUTROPHILS # (AUTO) 4.6 K/uL (1.8-7.7); NEUTROPHILS % (AUTO) 45.8 % (40.0-77.0); PLATELET COUNT (AUTO) 223 K/uL (130-400); RED BLOOD CELL COUNT(AUTO) 4.54 MIL/uL (4.00-5.50); RED CELL DISTRIBUTION WIDTH 14.4 % (11.0-15.5)
[2024-09-18 19:18] LABS: CREATININE 0.8 mg/dL (0.5-1.0); INR 1.01 (0.85-1.15); POTASSIUM 3.9 mmol/L (3.5-5.1); PROTHROMBIN TIME 11.3 SEC (9.6-11.6)
[2024-09-18 19:20] LABS: PARTIAL THROMBOPLASTIN TIME 26.5 SEC (26.3-35.5)
[2024-09-18 19:29] LABS: B-TYPE NATRIURETIC PEPTIDE 19 pg/mL (0-100)
[2024-09-18 19:32] LABS: MAGNESIUM 1.8 mg/dL (1.80-2.40)
[2024-09-18 19:43] LABS: APPEARANCE,URINE CLEAR (CLEAR); BILIRUBIN,URINE NEGATIVE (NEGATIVE); COLOR,URINE COLORLESS (YELLOW); GLUCOSE, URINE (UA) 500 mg/dL (NEGATIVE); KETONES,URINE NEGATIVE (NEGATIVE); LEUKOCYTE ESTERASE ,URINE NEGATIVE Leu/uL (NEGATIVE); NITRATE,URINE NEGATIVE (NEGATIVE); OCCULT BLOOD,URINE NEGATIVE (NEGATIVE); PROTEIN,URINE NEGATIVE (NEGATIVE); UROBILINOGEN,URINE 0.2 mg/dL (0.2-1.0)
[2024-09-18 19:44] LABS: ADD UA MICROSCOPIC YES
[2024-09-18 19:45] LABS: RBC,URINE 0-1 /HPF (0-1); SQUAMOUS EPITHELIAL CELL,UR RARE /HPF (0-2); WBC,URINE 0-1 /HPF (0-1)
--- NOTE | 2024-09-18 20:01 | HMCIMG ---
CHEST 1VW HISTORY: Chest pain COMPARISON: 06/08/2024 FINDINGS: A frontal projection of the chest was obtained. Prominent interstitial markings are seen with possible superimposed infiltrates. The heart is borderline enlarged. Degenerative changes are seen. No evidence of aortic calcification is seen. IMPRESSION: 1. Prominent interstitial markings are seen with possible superimposed infiltrates.
[2024-09-18] MEDS: PANTOPrazole 40 MG/VIAL IVP ONE (20:13)
--- NOTE | 2024-09-18 21:56 | HP ---
[facility] Date of Service: Sep 18, 2024 Time of Service: 21:55 PCP: Tita Rodriguez HISTORY OF PRESENT ILLNESS: This is a 79-year-old female with past medical history of atrial fibrillation, obstructive sleep apnea, diabetes, arthritis, hyperlipidemia, hypertension, asthma and coronary artery disease with cardiac stent and bilateral femoral stent who presents to the ED for complaints of left sided chest pain which started yesterday. Patient described chest pain as chest pressure associated with shortness of breaths. Patient reports she is supposed to have a stress test at Dr. Shine clinic today however it was canceled but since she continues to have chest pressure she decided to come to the ED for evaluation.Patient also reports,she had a holter monitor x 2 weeks and she was told that she has a 4 second pause and that she might need a permanent pacemaker and this add more concerns to her chest pressure reason why she came to ER. Seen jason examined patient in the ER awake,alert and coherent.Patient denies fever,dizziness,cough,palpitation,nausea and vomiting. Latest vital signs temperature 98.4, heart rate 72, blood pressure 103/39 saturation 99% on room air.0. ECG result revealed sinus rhythm heart rate 72. Labs: CBC is unremarkable. CO2 33, BUN 16, creatinine 0.8, GFR 75 glucose 217 magnesium 1.8 total CK 443 troponin six BNP 19. Chest x-ray result revealed prominent interstitial markings are seen with possible superimposed infiltrates. While in the ER patient received Protonix 40 mg IV. We will admit patient for further medical management. REVIEW OF SYSTEMS CONSTITUTIONAL: Denies fevers, chills, or night sweats. No unintentional weight loss reported. NEUROLOGICAL: Denies headache, amaurosis fugax, motor weakness, sensory deficit, vertigo/spinning sensation, gait abnormalities, or tremors. ENT: No hearing loss, otalgia, otorrhea, rhinitis, rhinorrhea, hoarseness, or sore throat. CARDIOVASCULAR: Complaints of chest pain Denies dyspnea on exertion, orthopnea, paroxysmal nocturnal dyspnea, palpitations, life-threatening arrhythmias, claudication. PULMONARY: Positive shortness of breaths Denies cough, phlegm/sputum, hemoptysis, pleuritic chest pain. SLEEP: Denies morning headaches, daytime somnolence or napping. Denies difficulty falling asleep, staying asleep, waking from sleep. Denies knowledge of snoring. GASTROINTESTINAL: Denies any type of dysphagia to either liquids or solids. Denies nausea, vomiting, pyrosis, early satiety, abdominal pain, diarrhea, constipation, or changes in stool consistency or caliber. Denies coffee-ground emesis, hematemesis, hematochezia, or melanotic stools. GENITOURINARY: Denies frequency, urgency, nocturia, hematuria or incontinence (Storage/Irritative symptoms.) Low urinary stream, straining to void, urinary intermittency or hesitancy, splitting of the voiding stream, terminal dribbling. ENDOCRINOLOGIC: Denies polyuria, polydipsia, polyphagia or heat/cold intolerances. HEMATOLOGIC: Denies thrombophilia/previous clots, or coagulopathy/bleeding disorders. ONCOLOGIC: Denies personal history of malignancy. DERMATOLOGIC: Denies rashes or pruritus. PSYCHIATRIC: Denies any suicidal or homicidal ideation. Denies hallucinations. PAST MEDICAL HISTORY: Atrial fibrillation, obstructive sleep apnea undiagnosed and untreated, Diabetes, arthritis, hyperlipidemia, hypertension, coronary artery disease and Asthma PAST SURGICAL HISTORY: Cardiac stent x2, left femoral stent x1 right femoral stent x2 bilateral tubal ligation PAST SOCIAL HISTORY: Patient lives alone with a 2 hour care provider from 5pm to 7pm . Patient denies alcohol tobacco and recreational drug use FAMILY HISTORY: Hypertension, diabetes and asthma Coded Allergies: Penicillins (Verified Allergy, Severe, HIVES, 03/28/16) PHYSICAL EXAM GENERAL APPEARANCE: The patient is awake, alert, and oriented, in no acute cardiopulmonary distress. NEUROLOGICAL: Cranial nerves II-XII grossly intact. Motor is 5/5 in bilateral upper and lower extremities proximal to distal. No sensory deficits. HEENT: Face is symmetric. Pupils are equal and reactive. Extraocular movements are intact. NECK: Supple. No JVD. No thyromegaly. No submental, submandibular, pre- /postauricular, occipital or supraclavicular lymphadenopathy. CHEST: Normal chest expansion.+ Telemetry. LUNGS: Absence of any rales, rhonchi or any wheezing. CARDIOVASCULAR: Regular. S1 and S2 normal. No appreciable rubs, murmurs or gallops. ABDOMEN: Soft, nontender, and nondistended. There is no rebound, voluntary guarding, or rigidity. : Deferred. No Clement. EXTREMITIES: Non-edematous and not cyanotic. No clubbing. Good capillary refill. SKIN: No skin breakdown. Vital Sign (Last 24 Hours) 09/18/24 19:34 Temp 98.4 Pulse 72 Resp 17 B/P (MAP) 103/39 Pulse Ox 99 O2 Delivery Room Air* O2 Flow Rate 0 FiO2 21 LABS: Laboratory: Test 09/18/24 19:31 09/18/24 18:52 Range/Units Urine Color COLORLESS YELLOW Urine Appearance CLEAR CLEAR Urine pH 6.0 5.0-8.0 Urine Specific [place] 1.006 1.001-1.031 Urine Protein NEGATIVE NEGATIVE mg/dL Urine Glucose (UA) 500 H NEGATIVE mg/dL Urine Ketones NEGATIVE NEGATIVE mg/dL Urine Occult Blood NEGATIVE NEGATIVE Urine Nitrate NEGATIVE NEGATIVE Urine Bilirubin NEGATIVE NEGATIVE mg/dL Urine Urobilinogen 0.2 0.2-1.0 mg/dL Urine Leukocyte Esterase NEGATIVE NEGATIVE Hni/uL Urine RBC 0-1 0-1 /HPF Urine WBC 0-1 0-1 /HPF Urine Squamous Epithelial Cells RARE 0-2 /HPF Urine Bacteria None None Seen /HPF White Blood Count 10.0 4.8-10.8 K/uL Red Blood Count 4.54 4.00-5.50 MIL/uL Hemoglobin 12.9 12.0-16.0 g/dL Hematocrit 39.8 36-48 % Mean Corpuscular Volume 87.7 79-99 fL Mean Corpuscular Hemoglobin 28.4 27.0-33.0 pg Mean Corpuscular Hemoglobin Concent 32.4 32.0-36.0 g/dL Red Cell Distribution Width 14.4 11.0-15.5 % Platelet Count 223 130-400 K/uL Mean Platelet Volume 10.4 7.5-10.5 fL Immature Granulocyte % (Auto) 0.3 0-1 % Neutrophils (%) (Auto) 45.8 40.0-77.0 % Lymphocytes (%) (Auto) 42.2 21.0-51.0 % Monocytes (%) (Auto) 9.3 3.0-13.0 % Eosinophils (%) (Auto) 2.0 0.0-8.0 % Basophils (%) (Auto) 0.4 0.0-5.0 % Neutrophils # (Auto) 4.6 1.8-7.7 K/uL Lymphocytes # (Auto) 4.2 1.0-4.8 K/uL Monocytes # (Auto) 0.9 0.1-1.0 K/uL Eosinophils # (Auto) 0.20 0.00-0.70 K/uL Basophils # (Auto) 0.04 0.00-0.20 K/uL Absolute Immature Granulocyte (auto 0.03 0-1 K/uL Nucleated Red Blood Cells 0.0 0.0-0.19 % Prothrombin Time 11.3 9.6-11.6 SEC Prothromb Time International Ratio 1.01 0.85-1.15 Activated Partial Thromboplast Time 26.5 26.3-35.5 SEC Sodium Level 141 136-145 mmol/L Potassium Level 3.9 3.5-5.1 mmol/L Chloride Level 101 101-111 mmol/L Carbon Dioxide Level 33 H 21-32 mmol/L Blood Urea Nitrogen 16 7-18 mg/dL Creatinine 0.8 0.5-1.0 mg/dL Glomerular Filtration Rate Calc 75 >90 mL/min Random Glucose 217 H 70-105 mg/dL Total Calcium 8.9 8.5-10.1 mg/dL Magnesium Level 1.80 1.80-2.40 mg/dL Total Creatine Kinase 443 #*H 21-232 U/L Troponin I High Sensitivity 6 4-50 ng/L B-Type Natriuretic Peptide 19 0-100 pg/mL DIAGNOSTICS / RADIOLOGY: [ ] ASSESSMENT: Unstable angina POA Uncontrolled diabetes POA Coronary artery disease with cardiac stent x2 and bilateral femoral stent POA Elevated total CK POA Hyperlipidemia POA History of atrial fibrillation POA PLAN: We will admit patient in medical telemetry We will start on heart healthy and consistent carb diet We will start NS @ 75ml / hr x 2 bags and re evaluate We will start patient on Lovenox 30 mg subQ daily for DVT prophylaxis We will start on Famotidine 20 mg p.o. daily for GI prophylaxis We will replace electrolytes as needed per protocol We will start on insulin sliding scale AC & HS with hypoglycemia protocol We will add prn medication for fever,pain,cough and nausea We will reconcile home meds once medlist available We will trend troponin q.6 x3 We will start aspirin 81 mg p.o. daily We will continue nitro paste 0.5 topical every 8 hours We will obtain echocardiogram We will seek Cardiology consultation We will request labs in am Further orders to follow depending on above results Case discussed with attending physician and came up with above treatment and plan of care. ADVANCED CARE PLANNING 1. Which of the following were discussed? Hospice Care - No Therapeutic options - Yes Advance Directives - No Other discussions - 2. Discussed with who? Patient 3. Voluntary nature of this service was explained to the patient? Yes 4. Amount of time spent - __22 5. Reviewed by Physician? (if this service was performed by NPP) Yes Patient seen and examined by me. Agree with note by DYNAMOMETER TESTER ENGINE SEE ADDITIONAL ORDERS PER CHART DISCUSSED WITH NURSING STAFF KUN [id number] Sep 18, 2024 21:56
[2024-09-18] MEDS ORDERED: PoTASSium chloRIDE 20MEQ/100ML 100 ML IV PRN (22:00)
[2024-09-18] MEDS ORDERED: DEXTROSE 50%-WATER 50 ML DISP.SYRIN IV PRN (22:00)
[2024-09-18] MEDS ORDERED: GLUCAGON 1MG KIT 1 MG ML IM PRN (22:00)
[2024-09-18] MEDS ORDERED: acetaMINOPHEN 325 MG TAB PO PRN (22:00)
[2024-09-18] MEDS ORDERED: PoTASSium chloRIDE 20MEQ ER 20 MEQ ERTAB PO PRN (22:00)
[2024-09-18] MEDS ORDERED: ondanSETRON 4MG INJ IV PRN (22:00)
[2024-09-18] MEDS ORDERED: PoTASSium chl 10% ELIXIR 20MEQ 20 MEQ/15 ML UDCUP PO PRN (22:00)
[2024-09-18] MEDS: NITROGLYCERIN 1GM OINT 1 INCH/1GM TD SCH (22:00)
[2024-09-18] MEDS: 0.9%NACL 1000ML 1,000 ML IV SCH (23:08)
[2024-09-18] MEDS ORDERED: GABA-529 PO (23:39)
[2024-09-18] MEDS ORDERED: AEC81 PO (23:39)
[2024-09-18] MEDS ORDERED: TIZA2CAP9 PO (23:39)
[2024-09-19] VITALS (7 sets, daily range): BP systolic 93–121; BP diastolic 46–60; PULSE 61–84; RESP 18–19; TEMP 97.7–99.6; O2SAT 97–98
[2024-09-19 05:26] LABS: BASOPHILS # (AUTO) 0.04 K/uL (0.00-0.20); BASOPHILS % (AUTO) 0.5 % (0.0-5.0); EOSINOPHILS # (AUTO) 0.25 K/uL (0.00-0.70); EOSINOPHILS % (AUTO) 3.1 % (0.0-8.0); HEMATOCRIT 37.2 % (36-48); IMMATURE GRANULOCYTE ABSOLUTE 0.02 K/uL (0-1); LYMPHOCYTES # (AUTO) 3.4 K/uL (1.0-4.8); MEAN CORPUSCULAR HEMOGLOBIN 28.5 pg (27.0-33.0); MEAN CORPUSCULAR HGB CONC 32.3 g/dL (32.0-36.0); MEAN CORPUSCULAR VOLUME 88.4 fL (79-99); MONOCYTES # (AUTO) 1.1 K/uL (0.1-1.0); MONOCYTES % (AUTO) 13.2 % (3.0-13.0); NEUTROPHILS # (AUTO) 3.3 K/uL (1.8-7.7); PLATELET COUNT (AUTO) 192 K/uL (130-400); RED BLOOD CELL COUNT(AUTO) 4.21 MIL/uL (4.00-5.50); RED CELL DISTRIBUTION WIDTH 14.5 % (11.0-15.5); WHITE BLOOD COUNT (AUTO) 8.1 K/uL (4.8-10.8)
[2024-09-19] MEDS: INSULIN humuLIN R 100 UNIT/ML 3ML SQ SCH (05:50)
[2024-09-19 05:57] LABS: BILIRUBIN,TOTAL 0.3 mg/dL (0.2-1.0); CREATININE 0.7 mg/dL (0.5-1.0); POTASSIUM 3.4 mmol/L (3.5-5.1); THYROID STIMULATING HORMONE 0.79 uIU/mL (0.36-3.74); TOTAL PROTEIN, SERUM 6.3 g/dL (6.0-8.3)
[2024-09-19 06:04] LABS: HEMOGLOBIN A1C 8.5 % (4.0-6.0)
[2024-09-19 06:56] LABS: ERYTHROCYTE SEDIMENTATION RATE 6 MM/HR (0-30)
[2024-09-19] MEDS: ASPIRIN 81 MG EC TAB PO SCH (08:55)
[2024-09-19] MEDS: FAMOTIDINE 20MG TAB PO SCH (08:55)
[2024-09-19] MEDS: ENOXAPARIN SODIUM 30 MG/0.3 ML SQ SCH (08:56)
--- NOTE | 2024-09-19 12:26 | PN ---
[facility] PROGRESS NOTE Date of Service: Sep 19, 2024 Time of Service: 12:19 SUBJECTIVE: [79-year-old female admitted for chest pain associated with shortness of breaths. Apparently patient is supposed to have stress test by Dr. Shine yesterday unfortunately it was canceled. This patient also was supposed to have permanent pacemaker as per chart review. We will await for further re commendations from the Cardiology, patient stated that no chest pain during rounds. We will continue with cardiac workup. ] REVIEW OF SYSTEMS CONSTITUTIONAL: Denies fevers, chills, or night sweats. No unintentional weight loss reported. NEUROLOGICAL: Denies headache, amaurosis fugax, motor weakness, sensory defic it, vertigo/spinning sensation, gait abnormalities, or tremors. ENT: No hearing loss, otalgia, otorrhea, rhinitis, rhinorrhea, hoarseness, or sore throat. CARDIOVASCULAR: Complaints of chest pain Denies dyspnea on exertion, orthopnea, paroxysmal nocturnal dyspnea, palpitations, life-threatening arrhythmias, claudication. PULMONARY: Positive shortness of breaths Denies cough, phlegm/sputum, hemoptysis, pleuritic chest pain. SLEEP: Denies morning headaches, daytime somnolence or napping. Denies difficulty falling asleep, staying asleep, waking from sleep. Denies knowledge of snoring. GASTROINTESTINAL: Denies any type of dysphagia to either liquids or solids. Denies nausea, vomiting, pyrosis, early satiety, abdominal pain, diarrhea, constipation, or changes in stool consistency or caliber. Denies coffee-ground emesis, hematemesis, hematochezia, or melanotic stools. GENITOURINARY: Denies frequency, urgency, nocturia, hematuria or incontinence (Storage/Irritative symptoms.) Low urinary stream, straining to void, urinary intermittency or hesitancy, splitting of the voiding stream, terminal dribbling. ENDOCRINOLOGIC: Denies polyuria, polydipsia, polyphagia or heat/cold intolerances. HEMATOLOGIC: Denies thrombophilia/previous clots, or coagulopathy/bleeding disorders. ONCOLOGIC: Denies personal history of malignancy. DERMATOLOGIC: Denies rashes or pruritus. PSYCHIATRIC: Denies any suicidal or homicidal ideation. Denies hallucinations. PHYSICAL EXAM GENERAL APPEARANCE: The patient is awake, alert, and oriented, in no acute cardiopulmonary distress. NEUROLOGICAL: Cranial nerves II-XII grossly intact. Motor is 5/5 in bilateral upper and lower extremities proximal to distal. No sensory deficits. HEENT: Face is symmetric. Pupils are equal and reactive. Extraocular movements are intact. NECK: Supple. No JVD. No thyromegaly. No submental, submandibular, pre- /postauricular, occipital or supraclavicular lymphadenopathy. CHEST: Normal chest expansion.+ Telemetry. LUNGS: Absence of any rales, rhonchi or any wheezing. CARDIOVASCULAR: Regular. S1 and S2 normal. No appreciable rubs, murmurs or gallops. ABDOMEN: Soft, nontender, and nondistended. There is no rebound, voluntary guarding, or rigidity. : Deferred. No Clement. EXTREMITIES: Non-edematous and not cyanotic. No clubbing. Good capillary refill. SKIN: No skin breakdown. Vital Signs (last 8hr) Date Time Temp Pulse Resp B/P (MAP) Pulse Ox O2 Delivery O2 Flow Rate FiO2 09/19/24 11:55 99.7 64 19 93/46 99 Room Air 09/19/24 10:34 98 Room Air* 0 21 09/19/24 08:00 97.9 61 19 116/47 98 Room Air LABS: Laboratory: Test 09/19/24 10:17 09/19/24 05:19 09/19/24 05:00 09/18/24 19:31 Range/Units Troponin I High Sensitivity 7 4-50 ng/L Whole Blood Glucose 123 H 70-110 MG/DL White Blood Count 8.1 4.8-10.8 K/uL Red Blood Count 4.21 4.00-5.50 MIL/uL Hemoglobin 12.0 12.0-16.0 g/dL Hematocrit 37.2 36-48 % Mean Corpuscular Volume 88.4 79-99 fL Mean Corpuscular Hemoglobin 28.5 27.0-33.0 pg Mean Corpuscular Hemoglobin Concent 32.3 32.0-36.0 g/dL Red Cell Distribution Width 14.5 11.0-15.5 % Platelet Count 192 130-400 K/uL Mean Platelet Volume 10.3 7.5-10.5 fL Immature Granulocyte % (Auto) 0.2 0-1 % Neutrophils (%) (Auto) 41.0 40.0-77.0 % Lymphocytes (%) (Auto) 42.0 21.0-51.0 % Monocytes (%) (Auto) 13.2 H 3.0-13.0 % Eosinophils (%) (Auto) 3.1 0.0-8.0 % Basophils (%) (Auto) 0.5 0.0-5.0 % Neutrophils # (Auto) 3.3 1.8-7.7 K/uL Lymphocytes # (Auto) 3.4 1.0-4.8 K/uL Monocytes # (Auto) 1.1 H 0.1-1.0 K/uL Eosinophils # (Auto) 0.25 0.00-0.70 K/uL Basophils # (Auto) 0.04 0.00-0.20 K/uL Absolute Immature Granulocyte (auto 0.02 0-1 K/uL Nucleated Red Blood Cells 0.0 0.0-0.19 % Erythrocyte Sedimentation Rate 6 0-30 MM/HR Sodium Level 145 136-145 mmol/L Potassium Level 3.4 L 3.5-5.1 mmol/L Chloride Level 109 101-111 mmol/L Carbon Dioxide Level 28 21-32 mmol/L Blood Urea Nitrogen 13 7-18 mg/dL Creatinine 0.7 0.5-1.0 mg/dL Glomerular Filtration Rate Calc 88 >90 mL/min Random Glucose 114 H 70-105 mg/dL Hemoglobin A1c 8.5 H 4.0-6.0 % Estimated Average Glucose (eAG) 197 H 70-126 mg/dL Total Calcium 8.4 L 8.5-10.1 mg/dL Total Bilirubin 0.3 0.2-1.0 mg/dL Aspartate Amino Transf (AST/SGOT) 28 10-37 U/L Alanine Aminotransferase (ALT/SGPT) 22 12-78 U/L Alkaline Phosphatase 84 50-136 U/L Total Creatine Kinase 268 #H 21-232 U/L Total Protein 6.3 6.0-8.3 g/dL Albumin 3.0 L 3.5-5.0 g/dL Triglycerides Level 171 30-200 mg/dL Cholesterol Level 98 # <200 mg/dL LDL Cholesterol 42 0-99 mg/dL HDL Cholesterol 46 35-85 mg/dL Thyroid Stimulating Hormone (TSH) 0.79 0.36-3.74 uIU/mL Urine Color COLORLESS YELLOW Urine Appearance CLEAR CLEAR Urine pH 6.0 5.0-8.0 Urine Specific [place] 1.006 1.001-1.031 Urine Protein NEGATIVE NEGATIVE mg/dL Urine Glucose (UA) 500 H NEGATIVE mg/dL Urine Ketones NEGATIVE NEGATIVE mg/dL Urine Occult Blood NEGATIVE NEGATIVE Urine Nitrate NEGATIVE NEGATIVE Urine Bilirubin NEGATIVE NEGATIVE mg/dL Urine Urobilinogen 0.2 0.2-1.0 mg/dL Urine Leukocyte Esterase NEGATIVE NEGATIVE Nhi/uL Urine RBC 0-1 0-1 /HPF Urine WBC 0-1 0-1 /HPF Urine Squamous Epithelial Cells RARE 0-2 /HPF Urine Bacteria None None Seen /HPF Test 09/18/24 18:52 Range/Units Prothrombin Time 11.3 9.6-11.6 SEC Prothromb Time International Ratio 1.01 0.85-1.15 Activated Partial Thromboplast Time 26.5 26.3-35.5 SEC Magnesium Level 1.80 1.80-2.40 mg/dL B-Type Natriuretic Peptide 19 0-100 pg/mL Current Medications Medications (Trade) Dose Ordered Sig/Jennifer Route PRN Reason Start Time Stop Time Status Last Admin Dose Admin Acetaminophen (TYLenol 325MG TAB) 650 mg Q4H PRN PO MILD PAIN (1-3) 09/18/24 22:00 10/18/24 21:59 Acetaminophen (TYLenol 325MG TAB) 650 mg Q6H PRN PO TEMPERATURE GREATER THAN 101.5 09/18/24 22:00 10/18/24 21:59 Aspirin (Aspirin 81mg Ec Tab) 81 mg DAILY PO 09/19/24 09:00 10/19/24 08:59 09/19/24 08:55 81 MG Dextrose (D50w) 50 ml AD PRN IV HYPOGLYCEMIA PROTOCOL 09/18/24 22:00 10/18/24 21:59 Enoxaparin Sodium (Lovenox) 30 mg DAILY SQ 09/19/24 09:00 10/19/24 08:59 09/19/24 08:56 30 MG Famotidine (Pepcid 20mg Tab) 20 mg DAILY PO 09/19/24 09:00 10/19/24 08:59 09/19/24 08:55 20 MG Glucagon (Glucagon 1mg Kit) 1 mg AD PRN IM HYPOGLYCEMIA PROTOCOL 09/18/24 22:00 10/18/24 21:59 Insulin Human Regular (humuLIN R 100 UNIT/ML 3ML) INSULIN SLIDING SCAL... ACHS SQ 09/19/24 07:30 10/19/24 07:29 Magnesium Sulfate 50 ml @ 0 mls/hr PROTOCOL PRN IV OTHER [SEE ORDER COMMENTS] 09/18/24 22:00 10/18/24 21:59 Nitroglycerin (Nitroglycerin 1gm Oint) 0.5 inch Q8H TD 09/18/24 22:00 10/18/24 21:59 Ondansetron HCl (zoFRAN 4MG INJ) 4 mg Q6H PRN IV NAUSEA/VOMITING 09/18/24 22:00 10/18/24 21:59 Potassium Chloride 100 ml @ 100 mls/hr AD PRN IV POTASSIUM PROTOCOL 09/18/24 22:00 10/18/24 21:59 Potassium Chloride (K-Dur/Klor-Con 20meq) 20 meq AD PRN PO POTASSIUM PROTOCOL 09/18/24 22:00 10/18/24 21:59 Potassium Chloride (KCl 10% Elixir 20meq/15ml) 20 meq AD PRN PO POTASSIUM PROTOCOL 09/18/24 22:00 10/18/24 21:59 Sodium Chloride 1,000 ml @ 75 mls/hr [id number] IV 09/18/24 22:00 10/18/24 21:59 09/19/24 08:56 75 MLS/HR DIAGNOSTICS / RADIOLOGY: [ ] ASSESSMENT: Unstable angina POA Uncontrolled diabetes POA Coronary artery disease with cardiac stent x2 and bilateral femoral stent POA Elevated total CK POA Hyperlipidemia POA History of atrial fibrillation POA PLAN: Patient will continued to be admitted in in medical telemetry Continue heart healthy and consistent carb diet Continue NS @ 75ml / hr x 2 bags and re evaluate Continue with VTE prophylaxis on Lovenox 30 mg subQ daily for DVT prophylaxis Continue with Famotidine 20 mg p.o. daily for GI prophylaxis We will replace electrolytes as needed per protocol We will start on insulin sliding scale AC & HS with hypoglycemia protocol We will add prn medication for fever,pain,cough and nausea We will reconcile home meds once medlist available We will trend troponin q.6 x3 Continue with ACS protocol with aspirin 81 mg p.o. daily, atorvastatin We will continue nitro paste 0.5 topical every 8 hours We will follow up with the 2D echo Follow up with Cardiology recommendation We will request labs in am Further orders to follow depending on above results Case discussed with attending physician and came up with above treatment and plan of care. ATTESTATION BY PHYSICIAN I have seen and examined the patient. I reviewed the documentation, medical decision making, and treatment plan as noted by the mid-level provider above. I agree with the findings and plan of care. Dayami Ford MD, [facility] Sep 19, 2024 12:26
--- NOTE | 2024-09-19 14:17 | NUR ---
RECEIVED PHONE CALL FROM DR STEVENSON'S OFFICE THAT PATIENT CALLED THEM C/O OF NOT RECEIVING HE HOME MEDS AND THAT HER FOOD IS HORRIBLE AND THAT IT IS HIGH IN CARBS. C/O THAT HER LEGS HURT ETC. 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
--- NOTE | 2024-09-19 16:23 | NUR ---
[facility] CM SPOKE TO PT ASSESSMENT DONE. PATIENT IS INDEPENDENT PRIOR TO ADMISSION, LIVES AT HOME ALONE, DAUGHTER LIVES CLOSE BY. PT HAS A PROVIDER DAILY, DENIES ANY OTHER EQUIPMENT/SERVICES. USES HEB IN [place] FOR MEDS. FEELS SAFE TO GO BACK HOME, DAUGHTER ABLE TO ASSIST WITH TRANSPORTATION AND NEEDS NECESSARY. DCP HOME ONCE STABLE. CM TO CONTINUE TO FOLLOW UP. Addendum: 09/19/24 at 1624 by JB DALY LVN CM Amended: Links added.
[2024-09-19] MEDS: acetaMINOPHEN 325 MG TAB PO PRN (18:38)
--- NOTE | 2024-09-19 20:50 | CONS ---
[facility] CARDIOLOGY CONSULTATION NOTE Date Patient Seen: Sep 19, 2024 Time of Visit: 20:49 Requesting Physician: [ ] Reason for Consultation: [ ] History of Present Illness: [This is a 79-year-old female with past medical history of atrial fibrillation, obstructive sleep apnea, diabetes, arthritis, hyperlipidemia, hypertension, asthma and coronary artery disease with cardiac stent and bilateral femoral stent who presents to the ED for complaints of left sided chest pain which star hao yesterday. Patient described chest pain as chest pressure associated with shortness of breaths. Patient reports she is supposed to have a stress test today however it was canceled but since she continues to have chest pressure she decided to come to the ED for evaluation.Patient also reports,she had a holter monitor x 2 weeks and she was told that she has a 4 second pause and that she might need a permanent pacemaker and this add more concerns to her chest pressure reason why she came to ER. ] Past Medical History: [Previous stent Diabetes Hypertension Dyslipidemia Paroxysmal atrial fibrillation Hypercoagulable state related to atrial fibrillation Suspected sleep apnea ] Past Surgical History: [Coronary stent Left femoral stent Right femoral stent twice Bladder suspension ] Family History: [Negative for heart disease ] Social History: [Lives with services of a provider 2 hours per day ] Habits: [Denies] smoker. [Denies] alcohol consumption. [Denies] illicit drug use Home Meds: [ ] Current Meds: [ ] Review of Systems: CONST: [No fever, fatigue, or weight changes.] EYES: [No recent vision problems.] ENT: [No congestion, ear pain, or sore throat.] C/V: [No chest pain, palpitations, or edema.] RESP: [No cough, congestion, wheezing or shortness of breath.] GI: [No abdominal pain, nausea, vomiting, constipation, or diarrhea.] : [No incontinence or dysuria.] SKIN: [No rash.] NEURO: [No headache, focal numbness or weakness, dizziness, or seizures.] PSYCH: [No depression or anxiety.] HEME: [No abnormal bruising or bleeding.] LYMPH: [No swollen glands.] Physical Examination: GENERAL: [No acute distress.] HEAD: [Normal with no signs of head trauma.] EYES: [PERRLA, EOMI, conjunctiva and sclera normal.] ENT: [Hearing grossly intact, normal oropharynx.] NECK: [Supple without JVD. There is no tenderness, lymphadenopathy, or masses. No thyromegaly. Normal carotid upstrokes without bruits.] LUNGS: [Clear breath sounds bilaterally. There are right basilar rales one third of the way up the chest. No wheezes, or rhonchi.] HEART: [Normal rate and rhythm. Normal S1 and S2 without mumurs, gallop or rub. Pressure over left 3rd and 4th ribs reproduces pain] VASC: [Peripheral pulses +2 bilaterally.] ABD: [Bowel sounds normal, soft, nontender, no masses, no organomegaly. No audible bruits.] : [Not examined] LYMPH: [No lymphadenopathy noted.] EXT: [No clubbing, cyanosis or edema.] SKIN: [No rashes or lesions noted.] NEURO: [Awake, alert, and oriented x3. No focal sensory or strength deficits noted.] Vital Signs (last 8hr) Date Time Temp Pulse Resp B/P (MAP) Pulse Ox O2 Delivery O2 Flow Rate FiO2 09/19/24 20:00 98.1 79 19 121/53 96 Room Air 21 09/19/24 16:00 98.8 73 18 121/60 95 Room Air Laboratory: [ ] Hematology Labs: Test 09/19/24 05:00 Range/Units White Blood Count 8.1 4.8-10.8 K/uL Red Blood Count 4.21 4.00-5.50 MIL/uL Hemoglobin 12.0 12.0-16.0 g/dL Hematocrit 37.2 36-48 % Mean Corpuscular Volume 88.4 79-99 fL Mean Corpuscular Hemoglobin 28.5 27.0-33.0 pg Mean Corpuscular Hemoglobin Concent 32.3 32.0-36.0 g/dL Red Cell Distribution Width 14.5 11.0-15.5 % Platelet Count 192 130-400 K/uL Mean Platelet Volume 10.3 7.5-10.5 fL Immature Granulocyte % (Auto) 0.2 0-1 % Neutrophils (%) (Auto) 41.0 40.0-77.0 % Lymphocytes (%) (Auto) 42.0 21.0-51.0 % Monocytes (%) (Auto) 13.2 H 3.0-13.0 % Eosinophils (%) (Auto) 3.1 0.0-8.0 % Basophils (%) (Auto) 0.5 0.0-5.0 % Neutrophils # (Auto) 3.3 1.8-7.7 K/uL Lymphocytes # (Auto) 3.4 1.0-4.8 K/uL Monocytes # (Auto) 1.1 H 0.1-1.0 K/uL Eosinophils # (Auto) 0.25 0.00-0.70 K/uL Basophils # (Auto) 0.04 0.00-0.20 K/uL Absolute Immature Granulocyte (auto 0.02 0-1 K/uL Nucleated Red Blood Cells 0.0 0.0-0.19 % Erythrocyte Sedimentation Rate 6 0-30 MM/HR Chemistry Labs: Test 09/19/24 19:03 09/19/24 10:17 09/19/24 05:00 09/18/24 18:52 Range/Units Whole Blood Glucose 191 H 70-110 MG/DL Troponin I High Sensitivity 7 4-50 ng/L Sodium Level 145 136-145 mmol/L Potassium Level 3.4 L 3.5-5.1 mmol/L Chloride Level 109 101-111 mmol/L Carbon Dioxide Level 28 21-32 mmol/L Blood Urea Nitrogen 13 7-18 mg/dL Creatinine 0.7 0.5-1.0 mg/dL Glomerular Filtration Rate Calc 88 >90 mL/min Random Glucose 114 H 70-105 mg/dL Hemoglobin A1c 8.5 H 4.0-6.0 % Estimated Average Glucose (eAG) 197 H 70-126 mg/dL Total Calcium 8.4 L 8.5-10.1 mg/dL Total Bilirubin 0.3 0.2-1.0 mg/dL Aspartate Amino Transf (AST/SGOT) 28 10-37 U/L Alanine Aminotransferase (ALT/SGPT) 22 12-78 U/L Alkaline Phosphatase 84 50-136 U/L Total Creatine Kinase 268 #H 21-232 U/L Total Protein 6.3 6.0-8.3 g/dL Albumin 3.0 L 3.5-5.0 g/dL Triglycerides Level 171 30-200 mg/dL Cholesterol Level 98 # <200 mg/dL LDL Cholesterol 42 0-99 mg/dL HDL Cholesterol 46 35-85 mg/dL Thyroid Stimulating Hormone (TSH) 0.79 0.36-3.74 uIU/mL Magnesium Level 1.80 1.80-2.40 mg/dL B-Type Natriuretic Peptide 19 0-100 pg/mL Coagulation Labs: Test 09/18/24 18:52 Range/Units Prothrombin Time 11.3 9.6-11.6 SEC Prothromb Time International Ratio 1.01 0.85-1.15 Activated Partial Thromboplast Time 26.5 26.3-35.5 SEC Diagnostics / Radiology: [Copy/Paste Echos/Imaging Report here] Assessment: [Patient has extreme anxiety over her heart, attributes all chest pain to her heart. Current pain is atypical and we had planned to do a stress test. We will do that tomorrow and if the test is normal I will feel more confident that the symptoms are of musculoskeletal origin.] Plan: [Cardiolite scan tomorrow ] LIYA MATOS MD Sep 19, 2024 20:50
[2024-09-19] MEDS ORDERED: TIZANIDINE HCL PO SCH (21:00)
[2024-09-19] MEDS ORDERED: APIXaban 5 MG TABLET PO SCH (21:00)
[2024-09-19] MEDS: GABApentin 100 MG CAPSULE PO SCH (21:06)
[2024-09-19] MEDS: atorVAStatin 40 MG TABLET PO SCH (21:07)
[2024-09-19] MEDS ORDERED: PHARMACY COMMUNICATION MISC SCH (21:30)
--- NOTE | 2024-09-19 23:22 | HMCSR ---
APPROVED REPORT EXAM: Two-dimensional and M-mode echocardiogram with Doppler and color Doppler. INDICATION ICD: Chest Pain 2D Dimensions RVDd3.6 cmLVEF(%)49.6 (>50%)LVED Vol(simp.)93.9 mL IVSd0.9 (0.7-1.1cm)FS(%)25 %LVES Vol(simp.)54.4 mL LVDd4.8 (3.8-5.6cm)LA (2D)3.8 (1.6-4.0cm)LVEF(%, simp.)42 % PWd0.9 (0.7-1.1cm)Ao Root(2D)2.9 (2.0-3.7cm)LA ESV INDEX (4CH)28.70 mL/m2 IVSs1.2 cmLVOT diam2.3 (1.8-2.4cm)LA ESV INDEX (2CH)24.60 mL/m2 LVDs3.6 (2.5-4.0cm)LA ESV INDEX (BP)26.00 mL/m2 PWs1.4 cm M-Mode Dimensions EPSS1.6 cm LA (MM)3.8 (1.6-4.0cm) Ao Root(MM)3.1 (2.0-3.7cm) Aortic Valve AoV VTI0.4 mAo Mean GR4.0 mmHgLVOT VTI0.19 m ILIA (VMAX)2.2 cm2AVA (VTI) 2.2 cm2 Mitral Valve MV E Vmax85.9 cm/sDECEL Qukb601 ms MV A Zrgn114.8 cm/sP 1/2 T76 ms E/A ratio0.8MVA (PHT)2.9 cm2 TDI E/E' [id number]/E' Lateral8.4 Medial E' Peak V5.80 cm/sLateral E' Peak V10.20 cm/s Tricuspid Valve TR Vmax2.1 m/s TR Peak GR17.9 mmHg Left Ventricle The left ventricle is normal size. Mild global [id number]. There is normal left ventricular wall th ickness. LVEF is 40-45%. The left ventricular diastolic function is normal. Right Ventricle The right ventricle is normal size. The right ventricular systolic function is normal. Atria The left atrium size is normal. The right atrium size is normal. Aortic Valve The aortic valve is normal in structure. No aortic regurgitation is present. There is no aortic valvu lar stenosis. Mitral Valve The mitral valve is normal in structure. There is no mitral valve regurgitation noted. There is no mi tral valve stenosis. Tricuspid Valve The tricuspid valve is normal in structure. There is no tricuspid valve regurgitation noted. Pulmonic Valve The pulmonary valve is normal in structure. There is no pulmonic valvular regurgitation. Great Vessels The aortic root is normal in size. The IVC is normal in size and collapses <50% with inspiration. Pericardium There is no pericardial effusion. Conclusion LVEF is 40-45%.
[2024-09-20] VITALS: BP 102/40; PULSE 63; RESP 19; TEMP 98.1
[2024-09-20 04:00] VITALS: BP 95/51; PULSE 67; RESP 16; TEMP 98.7
[2024-09-20 05:00] LABS: HEMATOCRIT 35.5 % (36-48); MEAN CORPUSCULAR HEMOGLOBIN 28.6 pg (27.0-33.0); MEAN CORPUSCULAR HGB CONC 32.1 g/dL (32.0-36.0); RED BLOOD CELL COUNT(AUTO) 3.99 MIL/uL (4.00-5.50); RED CELL DISTRIBUTION WIDTH 14.3 % (11.0-15.5); WHITE BLOOD COUNT (AUTO) 7.8 K/uL (4.8-10.8)
[2024-09-20 05:25] LABS: ALBUMIN 2.9 g/dL (3.5-5.0); BILIRUBIN,TOTAL 0.3 mg/dL (0.2-1.0); CREATININE 0.6 mg/dL (0.5-1.0); MAGNESIUM 1.8 mg/dL (1.80-2.40); POTASSIUM 3.8 mmol/L (3.5-5.1); TOTAL PROTEIN, SERUM 6.3 g/dL (6.0-8.3)
[2024-09-20 08:00] VITALS: BP 124/51; PULSE 57; RESP 18; TEMP 99.5
[2024-09-20] MEDS ORDERED: REGADENOSON 0.4 MG/5 ML PF SYG IVP ONE (08:08)
[2024-09-20 08:10] VITALS: O2SAT 100
[2024-09-20] MEDS: SALMETEROL IH SCH (09:00)
[2024-09-20] MEDS: FLUTICASONE IH SCH (09:00)
[2024-09-20] MEDS: Cholecalciferol (Vitamin D3) 25 MCG PO SCH (09:00)
[2024-09-20] MEDS: EMPAGLIFLOZIN 25MG TABLET PO SCH (10:06)
[2024-09-20] MEDS: cloPIDOgrel 75MG TAB PO SCH (10:07)
[2024-09-20] MEDS: LISINOPRIL 10 MG TABLET PO SCH (10:07)
[2024-09-20] MEDS: ASPIRIN 81 MG EC TAB PO SCH (10:07)
[2024-09-20] MEDS: EZETIMIBE 10 MG TAB PO SCH (10:07)
[2024-09-20] MEDS: furoSEMIDE 40 MG TABLET PO SCH (10:08)
[2024-09-20] MEDS: TIZANIDINE HCL 2 MG TABLET PO SCH (10:08)
[2024-09-20] MEDS: PANTOPrazole 40 MG TAB DR PO SCH (10:10)
[2024-09-20] MEDS: MAGNESIUM 2GM PREMIX 50ML 50 ML IV PRN (10:11)
[2024-09-20 11:59] VITALS: BP 131/54; PULSE 77; RESP 19; TEMP 98.7
--- NOTE | 2024-09-20 13:12 | PN ---
[facility] PROGRESS NOTE Date of Service: Sep 20, 2024 Time of Service: 13:08 SUBJECTIVE: [79-year-old female admitted for chest pain associated with shortness of breaths. This morning patient had stress test, we are awaiting for final results and reading from coagulator. She complained of pain to the IV site, she is currently getting magnesium IV replacement. We will continue to monitor and if she gets clearance from coagulator, patient may be discharged home today. REVIEW OF SYSTEMS CONSTITUTIONAL: Denies fevers, chills, or night sweats. No unintentional weight loss reported. NEUROLOGICAL: Denies headache, amaurosis fugax, motor weakness, sensory deficit, vertigo/spinning sensation, gait abnormalities, or tremors. ENT: No hearing loss, otalgia, otorrhea, rhinitis, rhinorrhea, hoarseness, or sore throat. CARDIOVASCULAR: Complaints of chest pain Denies dyspnea on exertion, orthopnea, paroxysmal nocturnal dyspnea, palpitations, life-threatening arrhythmias, claudication. PULMONARY: Positive shortness of breaths Denies cough, phlegm/sputum, hemoptysis, pleuritic chest pain. SLEEP: Denies morning headaches, daytime somnolence or napping. Denies difficulty falling asleep, staying asleep, waking from sleep. Denies knowledge of snoring. GASTROINTESTINAL: Denies any type of dysphagia to either liquids or solids. D enies nausea, vomiting, pyrosis, early satiety, abdominal pain, diarrhea, constipation, or changes in stool consistency or caliber. Denies coffee-ground emesis, hematemesis, hematochezia, or melanotic stools. GENITOURINARY: Denies frequency, urgency, nocturia, hematuria or incontinence (Storage/Irritative symptoms.) Low urinary stream, straining to void, urinary intermittency or hesitancy, splitting of the voiding stream, terminal dribbling. ENDOCRINOLOGIC: Denies polyuria, polydipsia, polyphagia or heat/cold intolerances. HEMATOLOGIC: Denies thrombophilia/previous clots, or coagulopathy/bleeding disorders. ONCOLOGIC: Denies personal history of malignancy. DERMATOLOGIC: Denies rashes or pruritus. PSYCHIATRIC: Denies any suicidal or homicidal ideation. Denies hallucinations. PHYSICAL EXAM GENERAL APPEARANCE: The patient is awake, alert, and oriented, in no acute cardiopulmonary distress. NEUROLOGICAL: Cranial nerves II-XII grossly intact. Motor is 5/5 in bilateral upper and lower extremities proximal to distal. No sensory deficits. HEENT: Face is symmetric. Pupils are equal and reactive. Extraocular movements are intact. NECK: Supple. No JVD. No thyromegaly. No submental, submandibular, pre- /postauricular, occipital or supraclavicular lymphadenopathy. CHEST: Normal chest expansion.+ Telemetry. LUNGS: Absence of any rales, rhonchi or any wheezing. CARDIOVASCULAR: Regular. S1 and S2 normal. No appreciable rubs, murmurs or gallops. ABDOMEN: Soft, nontender, and nondistended. There is no rebound, voluntary guarding, or rigidity. : Deferred. No Clement. EXTREMITIES: Non-edematous and not cyanotic. No clubbing. Good capillary refill. SKIN: No skin breakdown. Vital Signs (last 8hr) Date Time Temp Pulse Resp B/P (MAP) Pulse Ox O2 Delivery O2 Flow Rate FiO2 09/20/24 11:59 98.8 77 19 131/54 99 Room Air 09/20/24 08:00 99.5 57 18 124/51 100 Room Air LABS: Laboratory: Test 09/20/24 10:48 09/20/24 03:58 09/19/24 10:17 09/19/24 05:00 Range/Units Whole Blood Glucose 205 H 70-110 MG/DL White Blood Count 7.8 4.8-10.8 K/uL Red Blood Count 3.99 L 4.00-5.50 MIL/uL Hemoglobin 11.4 L 12.0-16.0 g/dL Hematocrit 35.5 L 36-48 % Mean Corpuscular Volume 89.0 79-99 fL Mean Corpuscular Hemoglobin 28.6 27.0-33.0 pg Mean Corpuscular Hemoglobin Concent 32.1 32.0-36.0 g/dL Red Cell Distribution Width 14.3 11.0-15.5 % Platelet Count 163 130-400 K/uL Mean Platelet Volume 10.5 7.5-10.5 fL Nucleated Red Blood Cells 0.0 0.0-0.19 % Sodium Level 142 136-145 mmol/L Potassium Level 3.8 3.5-5.1 mmol/L Chloride Level 109 101-111 mmol/L Carbon Dioxide Level 26 21-32 mmol/L Blood Urea Nitrogen 12 7-18 mg/dL Creatinine 0.6 0.5-1.0 mg/dL Glomerular Filtration Rate Calc 92 >90 mL/min Random Glucose 171 H 70-105 mg/dL Total Calcium 8.6 8.5-10.1 mg/dL Magnesium Level 1.80 1.80-2.40 mg/dL Total Bilirubin 0.3 0.2-1.0 mg/dL Aspartate Amino Transf (AST/SGOT) 26 10-37 U/L Alanine Aminotransferase (ALT/SGPT) 24 12-78 U/L Alkaline Phosphatase 80 50-136 U/L Total Protein 6.3 6.0-8.3 g/dL Albumin 2.9 L 3.5-5.0 g/dL Troponin I High Sensitivity 7 4-50 ng/L Immature Granulocyte % (Auto) 0.2 0-1 % Neutrophils (%) (Auto) 41.0 40.0-77.0 % Lymphocytes (%) (Auto) 42.0 21.0-51.0 % Monocytes (%) (Auto) 13.2 H 3.0-13.0 % Eosinophils (%) (Auto) 3.1 0.0-8.0 % Basophils (%) (Auto) 0.5 0.0-5.0 % Neutrophils # (Auto) 3.3 1.8-7.7 K/uL Lymphocytes # (Auto) 3.4 1.0-4.8 K/uL Monocytes # (Auto) 1.1 H 0.1-1.0 K/uL Eosinophils # (Auto) 0.25 0.00-0.70 K/uL Basophils # (Auto) 0.04 0.00-0.20 K/uL Absolute Immature Granulocyte (auto 0.02 0-1 K/uL Erythrocyte Sedimentation Rate 6 0-30 MM/HR Hemoglobin A1c 8.5 H 4.0-6.0 % Estimated Average Glucose (eAG) 197 H 70-126 mg/dL Total Creatine Kinase 268 #H 21-232 U/L Triglycerides Level 171 30-200 mg/dL Cholesterol Level 98 # <200 mg/dL LDL Cholesterol 42 0-99 mg/dL HDL Cholesterol 46 35-85 mg/dL Thyroid Stimulating Hormone (TSH) 0.79 0.36-3.74 uIU/mL Test 09/18/24 19:31 09/18/24 18:52 Range/Units Urine Color COLORLESS YELLOW Urine Appearance CLEAR CLEAR Urine pH 6.0 5.0-8.0 Urine Specific [place] 1.006 1.001-1.031 Urine Protein NEGATIVE NEGATIVE mg/dL Urine Glucose (UA) 500 H NEGATIVE mg/dL Urine Ketones NEGATIVE NEGATIVE mg/dL Urine Occult Blood NEGATIVE NEGATIVE Urine Nitrate NEGATIVE NEGATIVE Urine Bilirubin NEGATIVE NEGATIVE mg/dL Urine Urobilinogen 0.2 0.2-1.0 mg/dL Urine Leukocyte Esterase NEGATIVE NEGATIVE Nhi/uL Urine RBC 0-1 0-1 /HPF Urine WBC 0-1 0-1 /HPF Urine Squamous Epithelial Cells RARE 0-2 /HPF Urine Bacteria None None Seen /HPF Prothrombin Time 11.3 9.6-11.6 SEC Prothromb Time International Ratio 1.01 0.85-1.15 Activated Partial Thromboplast Time 26.5 26.3-35.5 SEC B-Type Natriuretic Peptide 19 0-100 pg/mL Current Medications Medications (Trade) Dose Ordered Sig/Jennifer Route PRN Reason Start Time Stop Time Status Last Admin Dose Admin Acetaminophen (TYLenol 325MG TAB) 650 mg Q4H PRN PO MILD PAIN (1-3) 09/18/24 22:00 10/18/24 21:59 09/19/24 18:38 650 MG Acetaminophen (TYLenol 325MG TAB) 650 mg Q6H PRN PO TEMPERATURE GREATER THAN 101.5 09/18/24 22:00 10/18/24 21:59 Apixaban (EliquIS) 5 mg BID PO 09/19/24 21:00 09/19/24 21:15 DC Aspirin (Aspirin 81mg Ec Tab) 81 mg DAILY PO 09/19/24 09:00 09/19/24 15:15 DC 09/19/24 08:55 81 MG Aspirin (Aspirin 81mg Ec Tab) 81 mg DAILY PO 09/20/24 09:00 10/20/24 08:59 09/20/24 10:07 81 MG Atorvastatin Calcium (LIPItor 40MG) 80 mg HS PO 09/19/24 21:00 10/19/24 20:59 09/19/24 21:07 80 MG Clopidogrel Bisulfate (plaVIX 75MG) 75 mg DAILY PO 09/20/24 09:00 10/20/24 08:59 09/20/24 10:07 75 MG Dextrose (D50w) 50 ml AD PRN IV HYPOGLYCEMIA PROTOCOL 09/18/24 22:00 10/18/24 21:59 Empaglifozin (Jardiance 25mg) 25 mg DAILY PO 09/20/24 09:00 10/20/24 08:59 09/20/24 10:06 25 MG Enoxaparin Sodium (Lovenox) 30 mg DAILY SQ 09/19/24 09:00 09/19/24 15:21 DC 09/19/24 08:56 30 MG EZETIMIBE (Zetia) 10 mg DAILY PO 09/20/24 09:00 10/20/24 08:59 09/20/24 10:07 10 MG Famotidine (Pepcid 20mg Tab) 20 mg DAILY PO 09/19/24 09:00 09/19/24 15:26 DC 09/19/24 08:55 20 MG Furosemide (LASix 40MG TAB) 40 mg DAILY PO 09/20/24 09:00 10/20/24 08:59 09/20/24 10:08 40 MG Gabapentin (NEURontin 100 mg CAP) 100 mg HS PO 09/19/24 21:00 10/19/24 20:59 09/19/24 21:06 100 MG Glucagon (Glucagon 1mg Kit) 1 mg AD PRN IM HYPOGLYCEMIA PROTOCOL 09/18/24 22:00 10/18/24 21:59 Home Med (Home Medication) (Fluticasone/ Salmeterol (Fluticas... DAILY IH 09/20/24 09:00 10/20/24 08:59 Home Med (Home Medication) Cholecalciferol (Vitamin D3) 25 MCG DAILY PO 09/20/24 09:00 10/20/24 08:59 Insulin Human Regular (humuLIN R 100 UNIT/ML 3ML) INSULIN SLIDING SCAL... ACHS SQ 09/19/24 07:30 10/19/24 07:29 09/20/24 11:58 3 UNIT Lisinopril (Prinivil 10mg) 10 mg DAILY PO 09/20/24 09:00 10/20/24 08:59 09/20/24 10:07 10 MG Magnesium Sulfate 50 ml @ 0 mls/hr PROTOCOL PRN IV OTHER [SEE ORDER COMMENTS] 09/18/24 22:00 10/18/24 21:59 09/20/24 10:11 25 MLS/HR Miscellaneous Medication (Tizanidine HCl ) 1 cap TID PO 09/19/24 21:00 09/19/24 15:28 DC Nitroglycerin (Nitroglycerin 1gm Oint) 0.5 inch Q8H TD 09/18/24 22:00 10/18/24 21:59 09/19/24 23:24 0.5 INCH Ondansetron HCl (zoFRAN 4MG INJ) 4 mg Q6H PRN IV NAUSEA/VOMITING 09/18/24 22:00 10/18/24 21:59 Pantoprazole Sodium (PROTonix 40MG TAB) 40 mg DAILY PO 09/20/24 09:00 10/20/24 08:59 09/20/24 10:10 40 MG Pharmacy Profile Note (Pharmacy Communication) 1 each AD MISC 09/19/24 21:30 09/26/24 21:29 Potassium Chloride 100 ml @ 100 mls/hr AD PRN IV POTASSIUM PROTOCOL 09/18/24 22:00 10/18/24 21:59 Potassium Chloride (K-Dur/Klor-Con 20meq) 20 meq AD PRN PO POTASSIUM PROTOCOL 09/18/24 22:00 10/18/24 21:59 Potassium Chloride (KCl 10% Elixir 20meq/15ml) 20 meq AD PRN PO POTASSIUM PROTOCOL 09/18/24 22:00 10/18/24 21:59 Ropinirole HCl (REquip) 5 mg TID PO 09/19/24 21:00 10/19/24 20:59 09/19/24 21:35 5 MG Sodium Chloride 1,000 ml @ 75 mls/hr [id number] IV 09/18/24 22:00 10/18/24 21:59 09/19/24 08:56 75 MLS/HR Tizanidine HCl (Tizanidine HCl) 2 mg TID PO 09/20/24 09:00 10/20/24 08:59 09/20/24 10:08 2 MG DIAGNOSTICS / RADIOLOGY: [ ] ASSESSMENT: Unstable angina POA Uncontrolled diabetes POA Coronary artery disease with cardiac stent x2 and bilateral femoral stent POA Elevated total CK POA Hyperlipidemia POA History of atrial fibrillation POA PLAN: Patient will continued to be admitted in in medical telemetry Patient went for Lexiscan stress test, awaiting for final report Continue heart healthy and consistent carb diet Continue NS @ 75ml / hr x 2 bags and re evaluate Continue with VTE prophylaxis on Lovenox 30 mg subQ daily for DVT prophylaxis Continue with Famotidine 20 mg p.o. daily for GI prophylaxis We will replace electrolytes as needed per protocol We will start on insulin sliding scale AC & HS with hypoglycemia protocol We will add prn medication for fever,pain,cough and nausea Home medication has been reviewed and reconciled Troponin trended, all reviewed and unremarkable Continue with ACS protocol with aspirin 81 mg p.o. daily, atorvastatin We will continue nitro paste 0.5 topical every 8 hours We will follow up with the 2D echo Appreciate recommendations from Cardiology, stress test done this morning, awaiting for final results and recommendations We will request labs in am Further orders to follow depending on above results Case discussed with attending physician and came up with above treatment and plan of care. ATTESTATION BY PHYSICIAN I have seen and examined the patient. I reviewed the documentation, medical decision making, and treatment plan as noted by the mid-level provider above. I agree with the findings and plan of care. Olivier Yanes IV, MD, JANICE B AGPCNP Sep 20, 2024 13:12
--- NOTE | 2024-09-20 13:24 | DS ---
Discharge Summary Hospital Course Summary: 79-year-old female with past medical history of atrial fibrillation, obstructive sleep apnea, diabetes, arthritis, hyperlipidemia, hypertension, asthma and coronary artery disease with cardiac stent and bilateral femoral stent who presents to the ED for complaints of left sided chest pain which started yes terday. Patient described chest pain as chest pressure associated with shortness of breaths. Patient reports she is supposed to have a stress test today however it was canceled but since she continues to have chest pressure she decided to come to the ED for evaluation. Patient also reports,she had a holter monitor x 2 weeks and she was told that she has a 4 second pause and that she might need a permanent pacemaker and this add more concerns to her chest pressure reason why she came to ER. Patient admitted for further cardiac workup, troponin x3 were all unremarkable. She was evaluated by Dr. Shine and recommendations for stress test. Patient went for stress test this morning awaiting for cardiology reading. If stress test unremarkable, patient will be discharged home once cleared from the Cardiology team. PATIENT IS HEMODYNAMICALLY STABLE. NO OTHER COMPLAINTS. Health Evaluator(s): Dr. Shine, progress worker Procedure(s): Cardiac stress test-09/20/24 Assessment/Plan: Discharge Diagnoses Unstable angina POA Uncontrolled diabetes POA Coronary artery disease with cardiac stent x2 and bilateral femoral stent POA Elevated total CK POA Hyperlipidemia POA History of atrial fibrillation POA Admitting diagnoses Unstable angina POA Uncontrolled diabetes POA Coronary artery disease with cardiac stent x2 and bilateral femoral stent POA Elevated total CK POA Hyperlipidemia POA History of atrial fibrillation POA Discharge Instructions: Follow up with PCP in 2-3 days Follow-up with progress worker in one week Continue with home medications Home Medications: Active Scripts Apixaban (Eliquis) 5 Mg Tablet, 5 MG PO BID, #60 TAB 1 Refill Prov:BRIANNE PETERSON 03/24/24 Clopidogrel Bisulfate (Plavix) 75 Mg Tablet, 75 MG PO DAILY, #30 TAB 1 Refill Prov:BRIANNE PETERSON 03/23/24 Reported Medications Tizanidine HCl (Tizanidine HCl) 2 Mg Capsule, 1 CAP PO TID for 30 Days, #90 CAP 0 Refills 09/18/24 Gabapentin (Gabapentin) 100 Mg Capsule, 1 CAP PO HS for 30 Days, #90 CAP 0 Refills 09/18/24 Aspirin (ASPIRIN 81 MG ECTAB) 81 Mg Ectab, 81 MG PO DAILY, TAB.EC 09/18/24 Cholecalciferol (Vitamin D3) (Vitamin D3) 25 Mcg (1000 Unit) Capsule, 25 MCG PO DAILY, CAP 06/05/24 Lisinopril (Lisinopril) 10 Mg Tablet, 1 TAB PO DAILY for 30 Days, #30 TAB 0 Refills 06/05/24 Furosemide (Furosemide) 40 Mg Tablet, 1 TAB PO DAILY for 30 Days, #30 TAB 0 Refills 06/05/24 Ropinirole HCl (Ropinirole HCl) 5 Mg Tablet, 5 MG PO TID, TAB 06/05/24 Tizanidine HCl (Tizanidine HCl) 2 Mg Capsule, 2 MG PO TIDP, CAP 06/05/24 Fluticasone Propion/Salmeterol (Fluticasone-Salmeterol 250-50) 250 Mcg-50 Mcg/Dose Blst.w.dev, 1 EACH IH DAILY 03/20/24 Omeprazole (Omeprazole) 40 Mg Capsule.dr, 40 MG PO ACBKFST, CAP 03/20/24 Rosuvastatin Calcium (Rosuvastatin Calcium) 20 Mg Tablet, 20 MG PO HS, TAB 03/20/24 Empagliflozin (Jardiance) 25 Mg Tablet, 25 MG PO DAILY, TAB 03/20/24 Ezetimibe (Ezetimibe) 10 Mg Tablet, 10 MG PO DAILY, TAB 03/20/24 Discontinued Reported Medications Albuterol Sulfate (Ventolin Hfa) 90 Mcg Hfa.aer.ad, 2 PUFF IH BID PRN for wheezing for 30 Days, #18 GM 0 Refills 06/05/24 Insulin NPL/Insulin Lispro (Humalog Mix 75-25 Kwikpen) 100 Unit/Ml (75-25) Insuln.pen, 0 SQ BID, SYRINGE 06/05/24 Loratadine (Loratadine) 10 Mg Tablet, 1 TAB PO DAILY for allergy symptoms for 30 Days, #30 TAB 0 Refills 06/05/24 Alendronate Sodium (Alendronate Sodium) 35 Mg Tablet, 35 MG PO QWEEK, TAB 03/20/24 Glimepiride (Glimepiride) 2 Mg Tablet, 2 MG PO DAILYBKFST, TAB 03/20/24 Brimonidine Tartrate/Timolol (Combigan Eye Drops) 5 Ml Drops, 5 ML OP DAILY, DROP 03/28/16 Latanoprost (Xalatan 0.005% Ophth Soln) 20 Drop/Ml Opsol, 20 DROP OD DAILY, DROP 03/28/16 Discontinued Scripts Prednisone (Prednisone) 20 Mg Tablet, 40 MG PO DAILY for 5 Days, #5 TAB Prov:SHERYL SCHAEFFER 06/09/24 Benzonatate (Tessalon Perles) 100 Mg Cap, 1 CAP PO TID PRN for cough for 10 Days, #30 CAP 0 Refills Prov:SHERYL SCHAEFFER FOOD CHEMIST 06/09/24 Dronedarone Hydrochloride (Multaq) 400 Mg Tablet, 400 MG PO BID, #60 TAB 1 Refill Prov:JALEN VINSON 04/04/24 Time spent arranging discharge: 31-60 minutes ATTESTATION BY PHYSICIAN I have seen and examined the patient. I reviewed the documentation, medical decision making, and treatment plan as noted by the mid-level provider above. I agree with the findings and plan of care. Olivier Yanes IV, MD, JANICE B AGPCKATHRIN Sep 20, 2024 13:24
--- NOTE | 2024-09-20 15:00 | HMCSR ---
APPROVED REPORT Height: 5 ft 2in Weight: 155 lbs TEST INDICATIONS Chest Pain The imaging protocol used to acquire images was Rest Tc-99m/stress Tc-99m 1 day Consent: The procedure was explained and understood by the patient. Informerd consent was witnessed Koki Cortés RN First, low dose rest was performed then high dose stress. RESTING DATA: The resting ekg shows: NSR Rest SPECT myocardial perfusion imaging was performed in supine position minutes following the intra venous injection of 11 mCi of Tc-99 Sestamibi. Time of rest injection: 06:53: Date: 09/20/2024 PHARMACOLOGIC STRESS: Pharmacologic stress test was performed by injecting regadenoson 0.4 mg IV push followed by the intra venous injection of 27.6 mCi of Tc-99 Sestamibi. Time of stress injection: 09:40: Date: 09/20/2024 Heart Rate at time of stress injection: 68 bpm. The images were gated to evaluate regional wall motion and calculate left ventricular ejection fracti on. STRESS DETAILS Reason for Termination: Infusion complete Stress Symptoms: Dyspnea Max HR Achieved: 87 bpm % of APMHR Achieved: 72 Max Blood Pressure: 156/66 mmHg Stress ECG: NSR, APC's Study quality was good. Lung uptake was Normal. Artifact: breast artifact LEFT VENTRICLE Size: The left ventricular size is normal. Systolic Function:The left ventricular systolic function is normal. Wall Motion: No regional wall motion abnormalities noted. The left ventricular ejection fraction was calculated to be 61%.TID = 1.00. LV PERFUSION No evidence of infarct or ischemia, normal, low risk. RV Size/Shape Normal RV Conclusion The left ventricular ejection fraction was calculated to be 61%.TID = 1.00. No ischemia, low risk.
--- NOTE | 2024-09-20 15:10 | DS ---
[facility] CARDIOLOGY SIGN-OFF NOTE Date of Admission: Sep 18, 2024 at 21:57 Date of Discharge: Sep 20, 2024 Discharge Diagnoses: [ ] Principle Procedures Performed: [Cardiolite ] Problem List: [Costochondritis ] Interval History: [Still has occasional mild atypical chest discomforts, somewhat affected by deep inspiration. Cardiolite scan shows 61% ejection fraction with no ischemia or infarct. ] Physical Examination: GENERAL: [No acute distress.] Nonlabored respiration, no rales or rhonchi, mild chest wall tenderness, no edema, normal S1 and S2 Discharge Medication Recommendations: [ Does not require antianginals, continue preventive maintenance medications] Discharge Follow-up: [My office 4-8 weeks ] LIYA MATOS MD Sep 20, 2024 15:10
--- NOTE | 2024-09-20 15:45 | NUR ---
DISCHARGE PT DISCHARGING HOME ALL DISCHARGE INFORMATION GIVEN, EDUCATION PROVIDED PT VERBALLY UNDERSTANDING W/ 0 QUESTIONS OR CONCERNS @ THIS TIME
[2024-09-27] MEDS ORDERED: AUD NEB (19:11)
[2024-09-27] MEDS ORDERED: INSU100I29 SQ (19:23)
[2024-09-27] MEDS ORDERED: LATA2.5D14 OU (19:47)
[2024-09-27] MEDS ORDERED: BRIM5DRO5 OU (19:47)
== END 2024-09-20 16:15 | disposition home or self-care (01) ==
LOC: EDH 17:54 → EDHIP 21:57 → INTOOBSV 21:57 → 4BH 09-19 00:56
PROVIDERS: ADMIT Internal Medicine; ATTEND Internal Medicine
DX: I25.110 Atherosclerotic heart disease of native coronary artery with unstable angina pectoris (principal); E11.65 Type 2 diabetes mellitus with hyperglycemia; R79.89 Other specified abnormal findings of blood chemistry; E78.5 Hyperlipidemia, unspecified; I48.0 Paroxysmal atrial fibrillation; M94.0 Chondrocostal junction syndrome [Tietze]; I10 Essential (primary) hypertension; F41.9 Anxiety disorder, unspecified; J45.909 Unspecified asthma, uncomplicated; M19.90 Unspecified osteoarthritis, unspecified site; Z95.5 Presence of coronary angioplasty implant and graft; Z79.4 Long term (current) use of insulin; Z79.899 Other long term (current) drug therapy
CPT/HCPCS: 96361 ×2; 96375; 99285; 82550 ×2; 83735 ×2; 84484 ×4; 80048; 83880; 85025 ×2; 85610; 85730; 81001; 36415 ×3; 71045; 93005; 96372; 83036; 84443; 80061; 80053 ×2; 85651; 82948 ×5; 93017; 78452; 93306; 96365; 96366; 85027; G0378 ×3; J2470; J1650; A9500 ×2; J1815; J3475; J2785

== ENCOUNTER → 2024-11-07 | Outpatient (CLI) | payer OTHER, MEDICARE ==
[~2024-11-07] MED LIST changes: +AEC81 PO; -ALBU18HF7 IH; -ALEN35TA53 PO; +AMIO100T4 PO; +AMIO200T44 PO; +AUD NEB; -BENZ-39 PO; -BRIM5DRO OP; +BRIM5DRO5 OU; +CEFT1VIA14 IVPB; +DOXY200T8 PO; -DRON400T7 PO; +GABA-529 PO; -GLIM2TAB30 PO; -INSU100I13 SQ; +INSU100I29 SQ; +LACT10SO9 PO; +LATA2.5D14 OU; -LORA10TA7 PO; +METO25TA3 PO; +METO50TA9 PO; -PRED20TA3 PO; -XALA2.5OS OD
[2024-11-07 12:15] LABS: BASOPHILS # (AUTO) 0.04 K/uL (0.00-0.20); BASOPHILS % (AUTO) 0.5 % (0.0-5.0); EOSINOPHILS # (AUTO) 0.19 K/uL (0.00-0.70); EOSINOPHILS % (AUTO) 2.2 % (0.0-8.0); HEMATOCRIT 38.1 % (36-48); IMMATURE GRANULOCYTE ABSOLUTE 0.03 K/uL (0-1); LYMPHOCYTES # (AUTO) 3.1 K/uL (1.0-4.8); MEAN CORPUSCULAR VOLUME 90.5 fL (79-99); MONOCYTES # (AUTO) 1.1 K/uL (0.1-1.0); NEUTROPHILS # (AUTO) 4.4 K/uL (1.8-7.7); PLATELET COUNT (AUTO) 211 K/uL (130-400); RED BLOOD CELL COUNT(AUTO) 4.21 MIL/uL (4.00-5.50); RED CELL DISTRIBUTION WIDTH 15.1 % (11.0-15.5); WHITE BLOOD COUNT (AUTO) 8.7 K/uL (4.8-10.8)
[2024-11-07 12:30] LABS: CREATININE 0.7 mg/dL (0.5-1.0)
[2024-11-07 12:40] LABS: B-TYPE NATRIURETIC PEPTIDE 70 pg/mL (0-100)
== END | disposition home or self-care (01) ==
LOC: LAB 09:57
PROVIDERS: ATTEND Internal Medicine Cardiovascular Disease
DX: D68.59 Other primary thrombophilia (principal); R06.01 Orthopnea; G47.00 Insomnia, unspecified; I48.92 Unspecified atrial flutter
CPT/HCPCS: 36415; 80048; 83880; 85025

== ENCOUNTER → 2024-12-21 | Outpatient (CLI) | payer OTHER, MEDICARE ==
--- NOTE | 2024-12-21 12:35 | HMCIMG ---
Exam Type: US ABDOMINAL RUQ\E\LTD Clinical Information: Abnormal levels of other serum enzymes Comparison: None Findings: The liver shows normal echogenicity and size. No hepatic lesions are seen. Doppler evaluation shows patent portal and hepatic veins. The gallbladder shows cholelithiasis. No acute or chronic inflammation is noted. The gallbladder wall measures 2 mm No bile duct dilatation is noted. The common bile duct measures 3 mm. The right kidney measures 10.2 x 5.5 cm, and shows no hydronephrosis or calculi, masses or other abnormalities. The pancreas is unremarkable. The aorta and inferior vena cava show no significant abnormalities. IMPRESSION: Cholelithiasis.
== END | disposition home or self-care (01) ==
LOC: RAH 09:35
PROVIDERS: ATTEND Family Medicine
DX: K80.20 Calculus of gallbladder without cholecystitis without obstruction (principal); R74.8 Abnormal levels of other serum enzymes
CPT/HCPCS: 76705

== ENCOUNTER 2025-06-04 09:12 | Emergency (ER) | payer OTHER, MEDICARE ==
[~2025-06-04] VITALS: Ht 157.5 cm; Wt 77.6 kg
[~2025-06-04 09:12] MED LIST changes: -EZET10TA48 PO; +EZET10TA80 PO; -LATA2.5D14 OU; +LATA2.5D7 OU
--- NOTE | 2025-06-04 09:38 | ERN ---
General Chief Complaint: Shortness of Breath Stated Complaint: SOB Time Seen by : 09:26 History of Present Illness Initial Comments This is a 80-year-old woman with past medical history of hypertension, diabetes mellitus, asthma who presented with shortness of breath and chest pain that started today morning. She had a pacemaker implanted a few months ago by Dr. Shine. She Complained of intermittent chest pain and shortness of breath few times after the procedure.She has a long history of occupational exposure from working in [employer] for approximately 15-20 years, after which she was diagnosed with asthma likely secondary to to Chronic dust and chemical exposure. Her symptoms are well controlled with home medications. No history of home oxygen supplementation. No radiation, diaphoresis or syncope reported. No fevers, chills or cough. Allergies: Coded Allergies: Penicillins (Verified Allergy, Severe, HIVES, 03/28/16) Home Meds Active Scripts Amiodarone HCl (Amiodarone HCl) 100 Mg Tablet, 1 TAB PO DAILY for arrhythmia for 30 Days, #30 TAB 0 Refills Prov:TEJ CURIEL MD 10/05/24 Doxycycline Hyclate (Doxycycline Hyclate) 200 Mg Tablet.dr, 1 TAB PO BID for infection for 10 Days, #20 TAB 0 Refills Prov:TEJ CURIEL MD 10/05/24 Metoprolol Succinate (Toprol Xl) 50 Mg Tab.er.24h, 50 MG PO DAILY for 30 Days, #30 TAB 1 Refill Prov:TEJ CURIEL MD 10/05/24 Metoprolol Succinate (Toprol Xl) 25 Mg Tab.er.24h, 25 MG PO DAILY for 30 Days, #30 TAB 1 Refill Prov:TEJ CURIEL MD 10/05/24 Lactulose (Lactulose) 10 Gram/15 Ml Solution, 20 GM PO BID PRN for CONSTIPATION for 30 Days, #30 ML Prov:TEJ CURIEL MD 10/05/24 Ceftriaxone Sodium (Ceftriaxone Sodium) 1 Gram Vial, 1 GM IVPB Q24H for 10 Days, #10 VIAL 0 Refills Prov:TEJ CURIEL MD 10/05/24 Amiodarone HCl (Pacerone) 200 Mg Tablet, 200 MG PO BID for 5 Days, #10 TAB 0 Refills Prov:TEJ CURIEL MD 10/05/24 Apixaban (Eliquis) 5 Mg Tablet, 5 MG PO BID, #60 TAB 1 Refill Prov:BRIANNE PETERSON [facility] 03/24/24 Clopidogrel Bisulfate (Plavix) 75 Mg Tablet, 75 MG PO DAILY, #30 TAB 1 Refill Prov:KRISTENBRIANNE Marquez [facility] 03/23/24 Reported Medications Semaglutide (Rybelsus) 14 Mg Tablet, 1 TAB PO DAILY for 30 Days, #30 TAB 0 Refills ONE HOUR BEFORE MEALS 06/04/25 Cholecalciferol (Vitamin D3) 1,250 Mcg (08861 Unit) Cap, 1 CAP PO QWEEK for 28 Days, #4 CAP 0 Refills 06/04/25 Brimonidine Tartrate (Brimonidine Tartrate) 0.2 % Drops, 1 DROP OU BID 09/27/24 Latanoprost (Latanoprost) 0.005 % Drops, 1 DROP OU HS 09/27/24 Insulin Lispro (Humalog Sb Kwikpen) 100 Unit/Ml Ins.pen.hf, 100 UNIT SQ DAILY 09/27/24 Albuterol Sulfate (Albuterol Sulfate) 2.5 Mg/0.5 Ml Vial.neb, 1 VIAL NEB Q4H for shortness of breath for 10 Days, #30 ML 0 Refills 09/27/24 Tizanidine HCl (Tizanidine HCl) 2 Mg Capsule, 1 CAP PO TID for 30 Days, #90 CAP 0 Refills 09/18/24 Gabapentin (Gabapentin) 100 Mg Capsule, 1 CAP PO HS for 30 Days, #90 CAP 0 Refills 09/18/24 Aspirin (ASPIRIN 81 MG ECTAB) 81 Mg Ectab, 81 MG PO DAILY, TAB.EC 09/18/24 Cholecalciferol (Vitamin D3) (Vitamin D3) 25 Mcg (1000 Unit) Capsule, 25 MCG PO DAILY, CAP 06/05/24 Lisinopril (Lisinopril) 10 Mg Tablet, 1 TAB PO DAILY for 30 Days, #30 TAB 0 Refills 06/05/24 Furosemide (Furosemide) 40 Mg Tablet, 1 TAB PO DAILY for 30 Days, #30 TAB 0 Refills 06/05/24 Ropinirole HCl (Ropinirole HCl) 5 Mg Tablet, 5 MG PO TID, TAB 06/05/24 Tizanidine HCl (Tizanidine HCl) 2 Mg Capsule, 2 MG PO TIDP, CAP 06/05/24 Fluticasone Propion/Salmeterol (Fluticasone-Salmeterol 250-50) 250 Mcg-50 Mcg/Dose Blst.w.dev, 1 EACH IH DAILY 03/20/24 Omeprazole (Omeprazole) 40 Mg Capsule.dr, 40 MG PO ACBKFST, CAP 03/20/24 Rosuvastatin Calcium (Rosuvastatin Calcium) 20 Mg Tablet, 20 MG PO HS, TAB 03/20/24 Empagliflozin (Jardiance) 25 Mg Tablet, 25 MG PO DAILY, TAB 03/20/24 Ezetimibe (Ezetimibe) 10 Mg Tablet, 10 MG PO DAILY, TAB 03/20/24 Past Medical History Past Medical History: A-Fib, Arrythmia, Asthma, Diabetes-Type II, Hypertension Past Surgical History: Pacer/AICD, Other Surgical History Other: STENTS X 2 Family History Family History: Negative Social History Social History: Negative Female( History) History: Not Applicable ROS Dictation REVIEW OF SYSTEMS CONSTITUTIONAL: Denies fever, chills, or night sweats. No unintentional weight loss reported. NEUROLOGICAL: Denies headache, amaurosis fugax sensory deficit, vertigo/spinning sensation, gait abnormalities, or tremors. ENT: No hearing loss, otalgia, otorrhea, rhinitis, rhinorrhea, hoarseness, or sore throat. CARDIOVASCULAR: Reports intermittent chest pain near pacemaker site. Denies any exertional angina, dyspnea on exertion, orthopnea, paroxysmal nocturnal dyspnea, palpitations, life-threatening arrhythmias, claudication. PULMONARY: Complains of shortness of breath. Denies cough. GASTROINTESTINAL: Denies nausea, vomiting or abdominal pain. GENITOURINARY: Denies frequency, urgency, nocturia, hematuria or incontinence. Physical Exam Physical Exam Dictation PHYSICAL EXAM GENERAL APPEARANCE: The patient is awake, alert, and oriented, in no acute cardiopulmonary distress. NEUROLOGICAL: Alert and oriented x3, moving all extremities spontaneously. No focal deficit. HEENT: Face is symmetric. Pupils are equal and reactive. Extraocular movements are intact. CHEST: Normal chest expansion. Pain and Tenderness around the pacemaker implanted site. LUNGS: Absence of any rales, rhonchi or any wheezing. CARDIOVASCULAR: Regular. S1 and S2 normal. No appreciable rubs, murmurs or gallops. ABDOMEN: Soft, nontender, nondistended. No guarding and rigidity. EXTREMITIES: Bilateral lower limb swelling. Pitting edema present. Results Laboratory and Microbiology Lab and Micro Result Laboratory Tests Test 06/04/25 09:26 06/04/25 09:47 Urine Color LIGHT-YELLOW (YELLOW) Urine Appearance CLEAR (CLEAR) Urine pH 6.5 (5.0-8.0) Urine Specific [place] 1.006 (1.001-1.031) Urine Protein NEGATIVE mg/dL (NEGATIVE) Urine Glucose (UA) >=1000 mg/dL (NEGATIVE) H Urine Ketones NEGATIVE mg/dL (NEGATIVE) Urine Occult Blood NEGATIVE (NEGATIVE) Urine Nitrate NEGATIVE (NEGATIVE) Urine Bilirubin NEGATIVE mg/dL (NEGATIVE) Urine Urobilinogen 0.2 mg/dL (0.2-1.0) Urine Leukocyte Esterase 75 Nhi/uL (NEGATIVE) H Urine RBC 2-5 /HPF (0-1) H Urine WBC 2-5 /HPF (0-1) H Urine Squamous Epithelial Cells RARE /HPF (0-2) Urine Bacteria None /HPF (None Seen) White Blood Count 7.9 K/uL (4.8-10.8) Red Blood Count 4.54 MIL/uL (4.00-5.50) Hemoglobin 11.8 g/dL (12.0-16.0) L Hematocrit 37.1 % (36-48) Mean Corpuscular Volume 81.7 fL (79-99) Mean Corpuscular Hemoglobin 26.0 pg (27.0-33.0) L Mean Corpuscular Hemoglobin Concent 31.8 g/dL (32.0-36.0) L Red Cell Distribution Width 17.3 % (11.0-15.5) H Platelet Count 167 K/uL (130-400) Mean Platelet Volume 10.9 fL (7.5-10.5) H Immature Granulocyte % (Auto) 0.4 % (0-1) Neutrophils (%) (Auto) 59.1 % (40.0-77.0) Lymphocytes (%) (Auto) 29.6 % (21.0-51.0) Monocytes (%) (Auto) 8.5 % (3.0-13.0) Eosinophils (%) (Auto) 1.9 % (0.0-8.0) Basophils (%) (Auto) 0.5 % (0.0-5.0) Neutrophils # (Auto) 4.7 K/uL (1.8-7.7) Lymphocytes # (Auto) 2.3 K/uL (1.0-4.8) Monocytes # (Auto) 0.7 K/uL (0.1-1.0) Eosinophils # (Auto) 0.15 K/uL (0.00-0.70) Basophils # (Auto) 0.04 K/uL (0.00-0.20) Absolute Immature Granulocyte (auto 0.03 K/uL (0-1) Nucleated Red Blood Cells 0.0 % (0.0-0.19) Sodium Level 141 mmol/L (136-145) Potassium Level 3.8 mmol/L (3.5-5.1) Chloride Level 105 mmol/L (101-111) Carbon Dioxide Level 27 mmol/L (21-32) Blood Urea Nitrogen 22 mg/dL (7-18) H Creatinine 0.8 mg/dL (0.5-1.0) Glomerular Filtration Rate Calc 75 mL/min (>90) Random Glucose 152 mg/dL (70-105) H Total Calcium 8.6 mg/dL (8.5-10.1) Magnesium Level 2.10 mg/dL (1.80-2.40) Total Creatine Kinase 214 U/L (21-232) # Troponin I High Sensitivity 7 ng/L (4-50) B-Type Natriuretic Peptide 82 pg/mL (0-100) MDM Patient clinically stable, afebrile and hemodynamically normal at the time of evaluation. No acute cardiac renal or infectious process identified. Chest X-ray revealed Mild mid lung infiltrate. She received a dose of DuoNeb with symptomatic improvement. She has a long history of occupational exposure from working in [employer] for approximately 15-20 years, after which she was diagnosed with asthma likely secondary to to Chronic dust and chemical exposure. Other Laboratory results were overall within normal limits. WBC 7.9, hemoglobin 11.8, sodium 141, potassium 3.8, BNP 82, troponin I 7 and creatine kinase 21. Urinalysis showed glucose greater than 1000, RBC 2-5 and WBC 2-5. No leukocytosis, electrolyte imbalance or evidence of acute myocardial injury noted. Planning for discharge as symptoms have improved and vitals last labs are stable. Safe for discharge with outpatient follow up. * Continue home medications as instructed * Resume normal activity as tolerated. * Avoid exposure to smoke, dust that may trigger asthma symptoms * Follow up with PCP in 2-3 days * Return to emergency department immediately if you experience: Worsening shortness of breath or wheezing, chest pain or fever, lightheadedness and confusion * Use inhaler as directed AFTER BREATHING TREATMENT PATIENT STATES HE FEELS MUCH BETTER, SHE WISHES TO GO HOME WE WILL BE DISCHARGED IN STABLE CONDITION THROUGHOUT ER VISIT PATIENT HAS BEEN STABLE. ED Course Orders Procedure Category Date Status Time 12 Lead Ekg Tracing- EKG 06/04/25 Complete Technical 09:19 Cbc With Differential LAB 06/04/25 Complete 09:22 Chest 1vw RAD 06/04/25 Resulted 09:22 Magnesium LAB 06/04/25 Complete 09:22 Creatine Kinase, Total LAB 06/04/25 Complete 09:22 Troponin I High LAB 06/04/25 Complete Sensitivity 09:22 Urinalysis Profile LAB 06/04/25 Complete 09:22 Basic Metabolic Panel LAB 06/04/25 Complete 09:22 B-Type Natriuretic LAB 06/04/25 Complete Peptide 09:22 Culture Urine MAYELA 06/04/25 In Process 09:50 Covid Rna Naat LAB 06/04/25 In Process 11:22 Influenza Type A & B, LAB 06/04/25 In Process Rapid 11:22 Rapid (Group A Strep) LAB 06/04/25 In Process 11:22 Ipratropium/Albuterol PHA 06/04/25 Complete Neb (Duoneb) 12:00 Current Medications Medications (Trade) Dose Ordered Sig/Jennifer Route PRN Reason Start Time Stop Time Status Last Admin Dose Admin Albuterol (DUOneb) 1 UDVIAL ONCE ONCE IH 06/04/25 12:00 06/04/25 12:01 DC 06/04/25 11:47 Vital Signs Date Time Temp Pulse Resp B/P (MAP) Pulse Ox O2 Delivery O2 Flow Rate FiO2 06/04/25 11:47 64 18 06/04/25 09:47 61 16 113/56 97 Room Air* 0 21 06/04/25 09:14 97.9 74 16 127/73 99 Room Air 0 DX & DISP Disposition: Discharge Departure Impression: Primary Impression: Asthma exacerbation Additional Impression: Upper respiratory infection Critical Time: 30 minutes Condition: Stable Scripts Doxycycline Hyclate (Doxycycline Hyclate) 100 Mg Capsule 1 CAP PO BID for 7 Days, #14 CAP 0 Refills Prov: KORI SANTAMARIA MD 06/04/25 Albuterol Sulfate (Proventil/Ventolin Neb Soln) 2.5 Mg/0.5 Ml Soln 1 VIAL NEB Q4H for shortness of breath for 10 Days, #30 ML 0 Refills Prov: KORI SANTAMARIA MD 06/04/25 Additional Instructions: Continue home medications as instructed Resume normal activity as tolerated. Avoid exposure to smoke, dust that may trigger asthma symptoms Follow up with PCP in 2-3 days Return to emergency department immediately if you experience: Worsening shortness of breath or wheezing, chest pain or fever, lightheadedness and confusion Use inhaler as directed Referrals: NOE STEVENSON M.D. (PCP) Time of Disposition: 12:05 SANAZ JEAN MD Jun 04, 2025 09:38 KORI SANTAMARIA MD Jun 04, 2025 12:07
[2025-06-04 09:45] LABS: APPEARANCE,URINE CLEAR (CLEAR); GLUCOSE, URINE (UA) >=1000 mg/dL (NEGATIVE); LEUKOCYTE ESTERASE ,URINE 75 Leu/uL (NEGATIVE); NITRATE,URINE NEGATIVE (NEGATIVE); OCCULT BLOOD,URINE NEGATIVE (NEGATIVE)
[2025-06-04 09:49] LABS: ADD UA MICROSCOPIC YES
[2025-06-04 09:54] LABS: IMMATURE GRANULOCYTE ABSOLUTE 0.03 K/uL (0-1); NUCLEATED RED BLOOD CELLS 0.0 % (0.0-0.19); PLATELET COUNT (AUTO) 167 K/uL (130-400); RED BLOOD CELL COUNT(AUTO) 4.54 MIL/uL (4.00-5.50); RED CELL DISTRIBUTION WIDTH 17.3 % (11.0-15.5); WHITE BLOOD COUNT (AUTO) 7.9 K/uL (4.8-10.8)
[2025-06-04 10:00] LABS: CREATININE 0.8 mg/dL (0.5-1.0); GLOMERULAR FILTR. RATE CALC 75.0 mL/min (>90); GLUCOSE,RANDOM 152.0 mg/dL (70-105); SODIUM SERUM 141.0 mmol/L (136-145); UREA NITROGEN, BLOOD 22.0 mg/dL (7-18)
[2025-06-04 10:05] LABS: CREATINE KINASE, TOTAL 214.0 U/L (21-232)
[2025-06-04 10:19] LABS: SQUAMOUS EPITHELIAL CELL,UR RARE /HPF (0-2)
--- NOTE | 2025-06-04 10:21 | EKG ---
[facility] Test Date: 2025-06-04 Test Time: 09:46:41 Pat Name: LUC WITT Department: [facility] Room: Gender: F Building Associate: [id number] : 1945 Requested By: KORI SANTAMARIA Order Number: [id number] Reading MD: Kalyn Espinal Measurements Intervals [place] Rate: 60 P: 0 IL: 277 QRS: 28 QRSD: 94 T: 27 QT: 507 QTc: 507 Interpretive Statements Atrial-paced complexes Prolonged [place] interval Prolonged QT interval Compared to ECG 09/29/2024 10:32:50 First degree AV block now present Prolonged QT interval now present Atrial fibrillation no longer present ST (T wave) deviation no longer present T-wave abnormality no longer present Electronically Signed On 06-04-2025 12:11:02 CDT by Kalyn Espinal Please click the below link to view image of tracing.
[2025-06-04] MEDS ORDERED: SEMA14TA2 PO (10:37)
[2025-06-04] MEDS ORDERED: VITAD50000 PO (10:37)
--- NOTE | 2025-06-04 11:24 | HMCIMG ---
EXAM: CR Chest, 1 View. CLINICAL HISTORY: sob COMPARISON: None provided. FINDINGS: LUNGS: The lungs show no infiltrate or other acute finding. Mild bibasilar atelectasis. PLEURAL SPACES: No pleural effusion or pneumothorax. MEDIASTINUM: Pacemaker leads overlie the right atrium and right ventricle. Cardiac size and mediastinal contours within normal limits. BONES: No aggressive appearing osseous lesion seen. IMPRESSION: 1. No acute cardiopulmonary findings. /[place]
[2025-06-04 11:47] VITALS: PULSE 64; RESP 18
[2025-06-04] MEDS ORDERED: DOXY100C5 PO (12:07)
[2025-06-04] MEDS ORDERED: AUD NEB (12:07)
[2025-06-04 12:10] LABS: RAPID GROUP A STREP negative (NEGATIVE)
[2025-06-04 12:14] LABS: SARS-CoV-2, RNA, NAAT NEGATIVE SARS CoV-2 (NEGATIVE)
[2025-06-04 12:20] LABS: INFLUENZA TYPE A Negative For Type A (NEGATIVE); INFLUENZA TYPE B Negative For Type B (NEGATIVE)
[2025-06-04 12:47] VITALS: BP 116/62; PULSE 67; RESP 18; TEMP 98.1; O2SAT 98
--- NOTE | 2025-06-05 09:16 | EKG ---
[facility] Test Date: 2025-06-04 Test Time: 10:54:04 Pat Name: LUC WITT Department: ED Room: Gender: F [employer]: [id number] : 1945 Requested By: SANAZ JEAN Order Number: [id number] Reading MD: Yang Martin Measurements Intervals [place] Rate: 60 P: 0 WI: 293 QRS: 23 QRSD: 99 T: 25 QT: 503 QTc: 502 Interpretive Statements Atrial-paced rhythm Probable anteroseptal infarct, old Prolonged QT interval Compared to ECG 06/04/2025 09:46:41 Myocardial infarct finding now present First degree AV block no longer present Electronically Signed On 06-05-2025 18:02:20 CDT by Yang Martin Please click the below link to view image of tracing.
== END 2025-06-04 12:58 | disposition home or self-care (01) ==
LOC: EDH 09:12
DX: J45.901 Unspecified asthma with (acute) exacerbation (principal); J06.9 Acute upper respiratory infection, unspecified; I10 Essential (primary) hypertension; E11.9 Type 2 diabetes mellitus without complications; I48.91 Unspecified atrial fibrillation; Z88.0 Allergy status to penicillin; Z79.82 Long term (current) use of aspirin; Z79.84 Long term (current) use of oral hypoglycemic drugs; Z79.4 Long term (current) use of insulin; Z79.02 Long term (current) use of antithrombotics/antiplatelets; Z79.01 Long term (current) use of anticoagulants; Z79.51 Long term (current) use of inhaled steroids; Z79.899 Other long term (current) drug therapy; Z95.810 Presence of automatic (implantable) cardiac defibrillator; Z20.822 Contact with and (suspected) exposure to COVID-19
CPT/HCPCS: 36415; 71045; 80048; 81001; 82550; 83735; 83880; 84484; 85025; 87086; 87635; 87804; 87880; 93005; 94640; 99285